=== PATIENT | male | born 1960 | race Caucasian/White ===

== ENCOUNTER 2024-03-16 23:56 | Emergency (ER) | payer MEDICARE, SELFPAY ==
--- NOTE | ~2024-03-16 | CT_ITS ---
EXAMINATION: CTA chest abdomen pelvis DATE: 03/17/2024 6:40 IUSS MASTER ANALYST INDICATION: Evaluate for dissection. TECHNIQUE: Computed tomographic angiography (CTA) of the chest, abdomen, and pelvis was performed wit hout and with 100 mL Omnipaque-350 intravenous contrast. The dose-length product was 2003.78 mGy-cm. Maximum intensity projection 3D-reconstructions of the aorta and other arteries were constructed by araceli alcazar technologist on a separate workstation. COMPARISON: None. FINDINGS: CHEST CTA: Heart size normal. No significant pleural or pericardial effusion. There is mediastinal lipomatosis. No thoracic lymphadenopathy. No evidence for aortic aneurysm or dissection. Dependent atelectasis. No focal airspace consolidation. No endobronchial lesions. No large central pulmonary embolism. ABDOMEN AND PELVIS CTA: No evidence for aortic aneurysm or dissection. There is a fat-containing left inguinal hernia. Nonobs tructing right nephrolithiasis. The liver, spleen, pancreas, adrenal glands and left kidney are unrem arkable. No evidence for dissection or aneurysm. IMPRESSION: 1. No acute abnormality of the chest abdomen or pelvis. 2: Nonobstructing right nephrolithiasis. Reviewed, dictated and finalized at location A. MASTER ANALYST
--- NOTE | ~2024-03-16 | XR_ITS ---
EXAMINATION: XR chest 1V 03/17/2024 00:24 INDICATION: Slurred speech PROCEDURE: AP view of the chest COMPARISON: No prior studies for comparison. FINDINGS: The lungs are clear. The cardiomediastinal silhouette is within normal limits. There are no pleural effusions. There is no pneumothorax suspected. IMPRESSION: 1: NO ACUTE CARDIOPULMONARY DISEASE. Reviewed, dictated and finalized at location A. GER AUDIO
--- NOTE | ~2024-03-16 | CT_ITS ---
EXAMINATION: CT brain wo con DATE: 03/17/2024 00:16 INDICATION: Speech deficit. TIA. TECHNIQUE: Computed tomography (CT) of the head was performed without intravenous contrast. The dose- length product was 681.00 mGy-cm. Automated exposure control and iterative reconstruction technique w ere employed. COMPARISON: None FINDINGS: Mild generalized atrophy. There are scattered mild periventricular and subcortical white ma tter changes, most likely related to small vessel ischemic disease (microangiopathy). Chronic bilater al lacunar infarctions of the caudate nucleus. There is intracranial atherosclerosis. No midline shif t. No ventriculomegaly. No acute infarction, hemorrhage or mass. Basilar cisterns are patent. IMPRESSION: 1. No acute intracranial abnormality. 2: Chronic bilateral lacunar infarctions. Chronic age-related findings. Reviewed, dictated and finalized at location A. ESTATE PHOTOGRAPHER
--- NOTE | ~2024-03-16 | CT_ITS ---
EXAMINATION: CTA brain carotid DATE: 03/17/2024 7:42 CLINIC LICENSED PRACTICAL NURSE INDICATION: Speech deficit. TIA. TECHNIQUE: Computed tomographic angiography (CTA) of the head was performed with 100 mL Omnipaque-350 intravenous contrast. CTA of the neck was performed with intravenous contrast. The dose-length produ ct was 1221.46 mGy-cm. Maximum intensity projection and volume rendered 3D-reconstructions were creat ed by the technologist on a separate workstation. Automated exposure control and iterative reconstruc tion technique were employed. COMPARISON: CT head dated 03/17/2024. FINDINGS: HEAD/neck CTA: There is mild atherosclerosis of the carotid arteries at the bifurcations with less th an 50% stenosis. There is extensive atherosclerosis of the intracranial carotid arteries as well as t he vertebral arteries. There is severe stenosis of the left vertebral artery with probable dissection versus thromboembolic occlusion from C2 to the basilar confluence. There is multifocal moderate high -grade stenosis of the basilar artery. Cannot exclude propagation of vertebral artery dissection. Ezekiel ateral P1 and P2 multifocal high-grade segmental stenosis and/or occlusions. No large vessel occlusio n. Incidental note is made of chronic bilateral lacunar infarctions. 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 Recommend vascular surgery consultation. Multifocal moderate h igh-grade stenosis of the basilar artery. Cannot exclude propagation of vertebral artery dissection. 2: Bilateral P1 and P2 multifocal high-grade segmental stenosis and/or occlusions. No large vessel o cclusion. Reviewed, dictated and finalized at location A. 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 Recommend vascular surgery consultation. Multifocal moderate high-grade stenosis of the basilar a rtery. Cannot exclude propagation of vertebral artery dissection. 2: Bilateral P1 and P2 multifocal high-grade segmental stenosis and/or occlusi ons. No large vessel occlusion.
[2024-03-17] VITALS (9 sets, daily range): BP systolic 90–182; BP diastolic 67–112; PULSE 63–92; RESP 16–20; TEMP 36.2; O2SAT 95–98
[2024-03-17 00:05] LABS: Glucose Point of Care 275 mg/dl (65-105)
--- NOTE | 2024-03-17 00:08 | PC.NURSE ---
pt taken straight to ct via wheelchair.
[2024-03-17 00:24] LABS: Basophils Percent Auto 0.3 % (0.2-1.2); Eosinophils Absolute Auto 0.1 K/mm3 (0-0.3); Eosinophils Percent Auto 1.2 % (0-4.4); Hematocrit 46.8 % (42.0-52.0); Hemoglobin 16.4 g/dL (14.0-18.0); Immature Granulocyte Absolute 0.02 K/mm3 (0.00-0.031); Immature Granulocyte Percent A 0.3 % (0-0.5); Lymphocytes Absolute Auto 1.42 K/mm3 (0.9-3.2); Lymphocytes Percent Auto 20.9 % (18.3-44.2); Mean Corpuscular Hemoglobin 30.5 pg (26-34); Mean Platelet Volume 8.7 fl (7.4-10.4); Monocytes Absolute Auto 0.5 K/mm3 (0.1-0.6); Monocytes Percent Auto 7.5 % (2.6-8.5); Neutrophils Absolute Auto 4.7 K/mm3 (1.3-6.7); Neutrophils Percent Auto 69.8 % (45.5-73.1); Platelet Count Result 234 k/mm3 (150-375); Red Blood Count 5.38 M/mm3 (4.6-6.20); White Blood Count 6.8 K/mm3 (4.5-10.0)
--- NOTE | 2024-03-17 00:32 | ECG_ITS ---
Test Date: 2024-03-17 00:32:19 Measurements Intervals [place] Rate: 89 P: 14 GA: 158 QRS: 4 QRSD: 114 T: -36 QT: 367 QTc: 447 Interpretive Statements SINUS RHYTHM INFERIOR MYOCARDIAL INFARCTION , OF INDETERMINATE AGE [40+ ms Q WAVE AND/OR ST/T ABNORMALITY IN II/aVF] No previous ECG available for comparison Electronically Signed On 03-17-2024 15:56:23 POTATO LOADER by Antonino Scott M.D.
[2024-03-17 00:36] LABS: Alanine Aminotransferase 33 U/L (6-50); Albumin Level 4.2 g/dL (3.5-5.1); Alkaline Phosphatase 96 U/L (38-126); Anion Gap 13 mmol/L (4-12); Aspartate Amino Transferase 30 U/L (17-59); Bilirubin,Total 0.8 mg/dL (0.2-1.3); Blood Urea Nitrogen 13 mg/dL (9-20); Carbon Dioxide 23 mmol/L (22-30); Chloride 101 mmol/L (98-107); Estimated CRCL calculation 131 ml/min; Estimated Glomerular Filt Rate > 60; Glucose 265 mg/dL (65-110); Potassium 3.7 mmol/L (3.4-5.0); Sodium 137 mmol/L (137-145)
[2024-03-17 00:40] LABS: Partial Thromboplastin Time 27.4 Seconds (22.3-36.8)
[2024-03-17 00:48] LABS: Troponin I < 0.012 ng/mL (0.000-0.034)
--- NOTE | 2024-03-17 03:01 | ED.NEUROSD ---
HPI - Neuro Symptoms/Deficit General Chief Complaint: Neuro Symptoms/Deficit Stated Complaint: slurred speech [id number] Time Seen by Provider: 03/17/24 02:32 History of Present Illness HPI Narrative: 63-year-old male with a past medical history including prior stroke with minor residual right-sided deficits. Today presents to the emergency department for evaluation of slurred speech this started at 2:00 p.m., started getting better with time at about 8:00 p.m but then he started developing right-sided weakness that was worsening his baseline associated with recurrence of his slurred speech and some diplopia. He called an ambulance and arrived to the emergency department. He is currently outside the window for TNK for an acute stroke, stroke workup ordered in triage. Patient is complaining of right-sided weakness, malaise, diplopia, headache. Denies any traumatic injuries, falls. He has been taking his medications which include antihypertensives, aspirin. He was otherwise in his normal state of health. He tells me he has a history of a potential aneurysm in his brain as well. Denies any chest discomfort, abdominal pain, back pain, nausea, vomiting, diarrhea, constipation. States his last stroke was over 4 years prior. Related Data Allergies Allergy/AdvReac Type Severity Reaction Status Date / Time No Known Allergies Allergy Verified 03/17/24 03:25 Review of Systems Review of Systems: As reviewed above in HPI Exam Narrative: GENERAL: Ill-appearing, not in any acute distress, awake and answering questions HEAD: [Normocephalic, atraumatic.] EYES: Bilateral mild ptosis, pupils are 3 mm and reactive. Extraocular movements are full. ENT: Nares clear, no rhinorrhea or epistaxis. Mucous membranes moist. NECK: Supple. CHEST: [Clear to auscultation. No respiratory distress.] HEART: [Regular rate and rhythm]. No murmur heard. [Normal peripheral pulses.] ABDOMEN: [Soft, nondistended], [nontender], [No rigidity or guarding] EXTREMITIES: Normal range of motion. [No edema.] SKIN: Warm, dry, no rash. NEURO: Right-sided deficits including some effort against gravity in the right arm, full strength in bilateral lower extremities, slurring to his speech. Total NIH stroke scale 3. Awake and answering questions, no visual field deficits. PSYCH: [Normal mood and affect.] Course Vital Signs Vital signs: Vital Signs Temperature 36.2 C L 03/17/24 00:10 Pulse Rate 89 03/17/24 00:10 Respiratory Rate 20 03/17/24 00:10 Blood Pressure 182/112 H 03/17/24 00:10 Pulse Oximetry 98 03/17/24 00:10 Temperature 36.2 C L 03/17/24 00:10 Pulse Rate 78 03/17/24 05:30 Respiratory Rate 16 03/17/24 05:30 Blood Pressure 164/98 H 03/17/24 05:30 Pulse Oximetry 98 03/17/24 05:30 Oxygen Delivery Room Air 03/17/24 03:23 MDM - Neuro Symptoms/Deficit MDM Narrative Medical decision making narrative: 63-year-old male with a history of previous stroke with minor residual right-sided deficits presenting to the emergency department with concerns of new stroke-like symptoms that began at approximately 2:00 p.m. which was is last known well. No falls or traumatic injuries. No recent stroke or neuro surgical procedure. Does not take any blood thinners aside from aspirin. He has hypertensive with a blood pressure in the 180s, no tachycardia, fever or hypoxia. He is ill-appearing and does have new right-sided worsening deficits and deployed planned speech deficits giving him an NIH stroke scale of 3 with a last known well of 2:00 p.m.. Outside the window for thrombolytics therapy but possibly still in the window for intervention if there is a large vessel occlusion. CT of the noncontrast head was ordered in triage and negative for an acute stroke. CT angiography of his head neck was ordered in addition to laboratory studies. Prior to obtaining a CTA imaging patient began becoming severely diaphoretic, weak, his blood pressure began dropping into the low 100s, no associated tachycardia. He states he was having worsening symptoms and he did exhibit some worsening right-sided extremity symptoms and weakness with decreased mentation and slowness to respond. He is still protecting his airway and able to answer questions. CTA imaging of his entire chest abdomen pelvis was also added on given the hemodynamic lability at this time. He was provided fluid bolus. Noncontrast CT shows no acute hemorrhage or intracranial process. Chest x-ray without any acute findings. CT angiography of his chest abdomen pelvis with no dissection or aneurysms in the chest or abdomen/pelvis and no evidence of pulmonary embolism. The CT angiography of his head neck is very concerning with a left vertebral artery dissection versus distal thromboembolic occlusion from the C2 level up to the V4 level. There is basilar artery multifocal moderate stenosis and possible occlusion which potentially is propagation of the vertebral artery dissection. High-grade multifocal stenosis in P1 and P2 segments and potential occlusion there. Recommendations for vascular surgery an MRI per radiology's read. Patient was re-evaluated and still having his persistent right-sided deficits but his blood pressure and diaphoresis have improved. He was mentating more appropriately but still having NIH stroke scale of 3-4 at this time. Last known well to p.m.. I called and spoke to the [facility] transfer system and was made aware that there is significant delays and inability to get a bed into their system given the full capacity of their neurological services. He was placed on the waitlist there. Recommendations from the neurological/Stroke attending Dr. Ford was to keep BP <220/110 while pending transfer. I went to explore other options including the [facility] transfer center for more expedient transfer and availability of beds. I spoke to the [facility] transfer center and got recommendations from the neurosurgical consult service on-call with Dr. Leavitt to emergently transfer him to the ED at [facility] in [place] for evaluation and treatment of his acute stroke and acute vertebral artery dissection with distal occlusion. I spoke to the ED physician Dr. Diggs and relayed the recommendations and clinical exam, historical features and findings for the patient. He was accepted as a direct ED to ED transfer. There is a significant delay in ground transfer services at this time given the availability of local ambulance rig. Expedient transfer was warranted for intervention within stroke window so air evac flight crew was put on standby and willing to transfer him via helicopter. Patient was made aware of the plan and agreeable to transfer at this time. Medical Records Attestation: I reviewed the patient's medical records. Lab Data Attestation: I reviewed the patient's lab results. 03/17/24 00:07 03/17/24 00:07 Labs: Lab Results 03/17/24 03/17/24 Range/Units 00:02 00:07 WBC 6.8 (4.5-10.0) K/mm3 RBC 5.38 (4.6-6.20) M/mm3 Hgb 16.4 (14.0-18.0) g/dL Hct 46.8 (42.0-52.0) % MCV 87.0 (80-100) fl MCH 30.5 (26-34) pg MCHC 35.0 (32-36) g/dl RDW 13.0 (11.5-14.5) % Plt Count 234 (150-375) k/mm3 MPV 8.7 (7.4-10.4) fl Immature Gran % (Auto) 0.3 (0-0.5) % Neut % (Auto) 69.8 (45.5-73.1) % Lymph % (Auto) 20.9 (18.3-44.2) % Sutton % (Auto) 7.5 (2.6-8.5) % Eos % (Auto) 1.2 (0-4.4) % Baso % (Auto) 0.3 (0.2-1.2) % Lymph # (Auto) 1.42 (0.9-3.2) K/mm3 Sutton # (Auto) 0.5 (0.1-0.6) K/mm3 Eos # (Auto) 0.1 (0-0.3) K/mm3 Baso # (Auto) 0.0 (0.0-0.1) K/mm3 Abs Immat Gran (auto) 0.02 (0.00-0.031) K/mm3 Absolute Neuts (auto) 4.7 (1.3-6.7) K/mm3 Absolute Nucleated RBC 0.000 (0.0-0.012) K/mm3 Nucleated RBC % 0.0 (0.0-0.2) % PT 13.0 (11.1-14.7) Seconds INR 1.0 APTT 27.4 (22.3-36.8) Seconds Sodium 137 (137-145) mmol/L Potassium 3.7 (3.4-5.0) mmol/L Chloride 101 (98-107) mmol/L Carbon Dioxide 23 (22-30) mmol/L Anion Gap 13 H (4-12) mmol/L BUN 13 (9-20) mg/dL Creatinine 0.63 L (0.7-1.3) mg/dL Estim Creat Clear Calc 131 ml/min Estimated GFR > 60 (59 - ) Glucose 265 H (65-110) mg/dL POC Capillary Glucose 275 H (65-105) mg/dl Calcium 9.0 (8.4-10.2) mg/dL Total Bilirubin 0.8 (0.2-1.3) mg/dL AST 30 (17-59) U/L ALT 33 (6-50) U/L Alkaline Phosphatase 96 (38-126) U/L Troponin I < 0.012 (0.000-0.034) ng/mL Total Protein 8.0 (6.3-8.2) g/dL Albumin 4.2 (3.5-5.1) g/dL TSH (Reflex) 9.530 H (0.465-4.68) uIU/mL Free T4 0.88 (0.78-2.19) ng/dL Total T3 1.34 (0.97-1.69) NG/ML Imaging Data Attestation: I personally reviewed and interpreted this imaging study as follows: My impression: Impressions Chest/Abdomen/Pelvis CTA 03/17/24 06:40 IMPRESSION: 1. No acute abnormality of the chest abdomen or pelvis. 2: Nonobstructing right nephrolithiasis. Chest X-Ray 03/17/24 06:46 IMPRESSION: 1: NO ACUTE CARDIOPULMONARY DISEASE. Head CT 03/17/24 06:57 IMPRESSION: 1. No acute intracranial abnormality. 2: Chronic bilateral lacunar infarctions. Chronic age-related findings. 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, Acute stroke due to ischemia Patient Disposition: Acute Care Hospital Condition: Critical Patient Language: Malay Follow-up/Referrals: Alejandro,MD Toan [Primary Care Provider] - Time of Disposition: 05:30 Quality Stroke Date of last known normal: 03/16/24 Time of last known normal: 14:00 Stroke Scale Stroke Scale 1: Stroke scale date:: 03/17/24 Stroke scale time:: 03:01 1a Level of consciousness: alert-0 1b Level of consciousness questions: answers both correctly-0 1c Level of consciousness commands: obeys both correctly-0 2 Best gaze: normal-0 3 Visual: no visual loss-0 4 Facial palsy: normal-0 5a Motor: left arm: no drift-0 5b Motor: right arm: some effort/gravity-2 6a Motor: left leg: no drift-0 6b Motor: right leg: no drift-0 7 Limb ataxia: absent-0 8 Sensory: normal-0 9 Best language: no aphasia-0 10 Dysarthria: slurs some words-1 11 Extinction and inattention: no abnormality-0 Level:: 3
[2024-03-17] MEDS: LACTATED RINGERS 1,000 ML 999 ML IV CONT (03:26)
--- OUTSIDE RECORDS SUMMARY | 2024-03-17 04:03 | XMS_ITS | Referral Summary ---
Author Organization [facility] Address [address] [place] [address] Care Team Providers Care Wind Turbine Machinist Name Role Phone Toan Allen MD Primary Care Provider [phone] Source Comments [facility],non-owned Affiliates and Associated Physician Practices is amultiple site organization consisting of ambulatory clinics and hospital sitesin [place], [place]. This disclosure is being madepursuant to the Care Everywhere program and may not contain all information available regarding this patient. Last updated 17.[facility] Allergies Active Allergy Reactions Criticality Noted Date Comments Morphine Other Medium 10/30/2017 Sensation disturbance, etc. Medications * Be aware that medications may not be up to date on this document. Alwaysverify current medications with the patient. Medication Sig Dispensed Refills Start Date End Date Status levothyroxine (SYNTHROID) 75 MCG tablet Take 75 mcg by mouth daily before breakfast Active aspirin (ASPIRIN) 81 MG chew tablet Take 81 mg by mouth once daily Active fish oil/omega-3 fatty acids (PROMEGA;CARDI-OM EGA 3) 1000 MG capsule Take 1,000 mg by mouth 3 times daily with meals Active clopidogrel (PLAVIX) 75 MG tablet Take 1 tablet by mouth once daily 30 tablet 10/15/2017 Active metFORMIN (GLUCOPHAGE) 500 MG tablet Take 500 mg by mouth 2 times daily with morning and evening meal 06/28/2018 Active amLODIPine (NORVASC) 10 MG tablet Take 10 mg by mouth once daily Active glimepiride (AMARYL) 4 MG tablet Take 4 mg by mouth daily with breakfast Active icosapent ethyl (VASCEPA) 1 g capsule Take 1 g by mouth 2 times daily with morning and evening meal Active evolocumab (REPATHA) 140 MG/ML prefilled syringe Inject 140 mg subcutaneously every 14 days Active rosuvastatin (CRESTOR) 40 MG tablet Take 40 mg by mouth once daily Active lisinopril (PRINIVIL; ZESTRIL) 20 MG tablet Take 1 (one) tablet by mouth once daily 30 tablet 5 03/22/2020 Active lisinopril (PRINIVIL; ZESTRIL) 40 MG tablet Take 20 mg by mouth 2 times daily 07/30/2020 Active Active Problems Problem Noted Date Diagnosed Date Cerebrovascular accident (CVA) 03/17/2020 TIA (transient ischemic attack) 06/23/2018 Slurred speech 06/23/2018 Tachypnea 06/23/2018 Intracranial carotid stenosis 11/08/2017 Severe sepsis 10/11/2017 Vertebrobasilar artery insufficiency Cerebral aneurysm Benign essential HTN Hyperlipidemia Troponin level elevated Social History Tobacco Use Types Packs/Day Years Used Date Smoking Tobacco: Never Smokeless Tobacco: Never Tobacco Cessation:Counseling Given: Yes Alcohol Use Standard Drinks/Week Comments Yes 0 (1 standard drink = 0.6 oz pur e alcohol) socially AUDIT-C Answer Date Recorded Q1: How often do you have a drink containing alc ohol? Monthly or less 03/18/2020 Q2: How many drinks containi ng alcohol do you have on a typical day when you are drinking? 1 or 2 03/18/2020 Q3: How often do you have si x or more drinks on one occasion? Never 03/18/2020 Hunger Vital Sign Answer Date Recorded Within the past 12 months, y ou worried that your food would run out before you got the money to buy more. Never true 03/18/19 21 Within the past 12 months, t he food you bought just didn't last and you didn't have money to get more. Never true 03/18/2020 PRAPARE - Transportation Answer Date Re corded In the past 12 months, has l ack of transportation kept you from medical appointments or from getting medications? No 02/19 In the past 12 months, has l ack of transportation kept you from meetings, work, or from getting things needed for daily living? No 03/18/2020 Sex and Gender Information Value Date Recorded Sex Assigned at Not on file Gender Identity Not on file Sexual Orientation Not on file Last Filed Vital Signs Vital Sign Reading Time Taken Comments Blood Pressure 150/100 05/23/2020 10:32 AM CDT Pulse 88 05/23/2020 10:32 AM CDT Temperature 37 ??C (98.6 ??F) 03/21/2020 11:50 AM MULTI NEEDLE MACHINE OPERATOR Respiratory Rate 16 05/23/2020 10:32 AM CDT Oxygen Saturation 98% 05/23/2020 10:32 AM CDT Inhaled Oxygen Concentration - - Weight 108.9 kg (240 lb) 05/23/2020 10:32 AM CDT Height 182.9 cm (6') 05/23/2020 10:32 AM CDT Body Mass Index 32.55 05/23/2020 10:32 AM CDT Functional Status Functional Status Response Date of Assess ment Is person deaf or have serious hearing difficult y? No 03/18/2020 Is person blind or have serious difficulty seein g? No 03/18/2020 Does person have serious dif ficulty walking/climbing stairs? No 03/18/2020 Does person have difficulty dressing/bathing? No 03/18/2020 Does person have difficulty doing errands alone? No 03/18/2020 Cognitive Status Response Date of Assessm ent Does person have difficulty concentrating/remembering/making decisions? No 03/18/2020 Plan of Treatment Not on file Procedures Procedure Name Priority Date/Time Associated Diagnosis Comments BASIC METABOLIC PANEL (CALCIUM TOTAL) AM Draw 03/21/2020 4:43 AM MULTI NEEDLE MACHINE OPERATOR from Last 3 Months or Most Recently Relevant to Health Maintenance Results * (ABNORMAL) BASIC METABOLIC PANEL (CALCIUM TOTAL) (03/21/2020 4:43 AM MULTI NEEDLE MACHINE OPERATOR) Glucose 170(H) 70 - 105 mg/dL 03/21/2020 5:34 AM MULTI NEEDLE MACHINE OPERATOR [facility] Sodium 134(L) 136 - 145 mmol/L 03/21/2020 5:34 AM MULTI NEEDLE MACHINE OPERATOR [facility] Potassium 3.7 3.5 - 5.1 mmol/L 03/21/2020 5:34 AM MULTI NEEDLE MACHINE OPERATOR [facility] Chloride 101 98 - 107 mmol/L 03/21/2020 5:34 AM MULTI NEEDLE MACHINE OPERATOR [facility] CO2 24 23 - 31 mmol/L 03/21/2020 5:34 AM MULTI NEEDLE MACHINE OPERATOR [facility] Calcium 8.7 8.4 - 10.4 mg/dL 03/21/2020 5:34 AM MULTI NEEDLE MACHINE OPERATOR [facility] Anion Gap 9 8 - 18 mmol/L 03/21/2020 5:34 AM MULTI NEEDLE MACHINE OPERATOR [facility] Comment:Attention clinician: Reference Range change. BUN 12 8.4 - 25.7 mg/dL 03/21/2020 5:34 AM MULTI NEEDLE MACHINE OPERATOR [facility] Creatinine 0.75 0.72 - 1.25 mg/dL 03/21/2020 5:34 AM MULTI NEEDLE MACHINE OPERATOR [facility] eGFR by MDRD >60 >60 mL/min/1.7 3m2 03/21/2020 5:34 AM MULTI NEEDLE MACHINE OPERATOR [facility] eGFR by MDRD >60 >60 mL/min/1.7 3m2 03/21/2020 5:34 AM MULTI NEEDLE MACHINE OPERATOR [facility] Blood BLOOD SPECIMEN / Unknown Venipuncture / Unknown 03/21/2020 4:43 AM MULTI NEEDLE MACHINE OPERATOR 03/21/2020 4:55 AM MULTI NEEDLE MACHINE OPERATOR Liz Jonathan ELECTRIC MOTOR ASSEMBLER-ARTIFICIAL FLOWER MAKER LAB - CHEMISTRY ORDERABLES [facility] [id number] [id number] from Last 3 Months or Most Recently Relevant to Health Maintenance Advance Directives * Full Code (Latest Code Status on File) Date Activated Date Inactivated Comments 03/17/2020 6:42 PM 03/21/2020 4:37 PM * Full Code Date Activated Date Inactivated Comments 06/23/2018 6:50 AM 06/27/2018 3:37 PM * Full Code Date Activated Date Inactivated Comments 10/12/2017 12:08 PM 10/14/2017 4:55 PM * Full Code Date Activated Date Inactivated Comments 10/11/2017 3:46 AM 10/12/2017 12:08 PM Care Teams Wind Turbine Machinist Relationship Specialty Start Date End Date Toan Allen MD PCP - General Internal Medicine 10/10/17
--- OUTSIDE RECORDS SUMMARY | 2024-03-17 04:03 | XMS_ITS | Clinical Summary ---
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 Indications: high blood pressure Active ergocalciferol (VITAMIN D) 50,000 unit capsuleIndicatio ns:Vitamin D deficiency Take 1 capsule (50,000 Units total) by mouth once a week 4 capsule 2 2 Active acetone, urine, test stripIndications :Type 2 diabetes mellitus with hyperglycemia, with long-term current use of insulin (HCC) Use as direct when blood sugar > 250 mg/dl 50 strip 1 2 Active lancets 30 gauge miscIndications: Type 2 diabetes mellitus without complication, unspecified whether watermelon inspector insulin use (HCC) One Touch Delica Lancets - Use to test blood sugar 3 times per day. 200 each 2 Active OneTouch Verio test strips stripIndications :Type 2 diabetes mellitus without complication, unspecified whether watermelon inspector insulin use (HCC) Use to test blood sugar 3 times per day. 2 Active pen needle, diabetic 31 gauge x 3/16 needleIndication s:Type 2 diabetes mellitus without complication, unspecified whether watermelon inspector insulin use (HCC) Use to inject insulin 4 times per day. 2 Active flash glucose scanning reader (FreeStyle Diamond 2 Troy) misc Use as directed for continuous glucose monitoring. T2DM 1 each 2 Active flash glucose sensor (FreeStyle Diamond 2 Sensor) kit Use as directed for continuous glucose monitoring. T2DM 1 kit 11 2 Active insulin glargine (LANTUS) 100 unit/mL (3 mL) pen for injectionIndicat ions:Type 2 diabetes mellitus without complication, unspecified whether jail insulin use (HCC) Inject 48 units. Once per day. 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 Today with persistent binocular diplopia and newly noted right hypertropia. Stable abduction deficit OS and small adduction deficit as well. No fatigability, no Kevin's lid twitch. Recent TSH 10.15 and T4 0.84. HPI significant for recurrent episodes of diplopia, weakness, and dysarthria with exertion which have occurred sporadically since 2013 and are now worse. Given lack of improvement/ new vertical component at 8 weeks, this is less likely to be a microvascular CN6 palsy. My highest suspicion is for myasthenia gravis, given the history of exertional diplopia/weakness/dysarthria. Will check acetylcholine receptor binding Ab. Will also check thyroid stimulating immunoglobulin given hx hypothyroidism, although given fluctuating symptoms thyroid eye disease less likely. If positive will plan for chest CT and start mestinon. Continue patching for symptomatic relief Will schedule follow up pending test results. Aneurysm of basilar artery ([facility]) 09/17/2013 Hyperlipidemia Hypertension JAIME (obstructive sleep apnea) Diabetes mellitus, type 2 Immunizations Name Administration Dates Next Due Influenza, Quadrivalent, Muna l Culture-based MDCK, Preservative Free, Antibiotic Free, Intramuscular 01/16/2022 Influenza, Quadrivalent, Spl it, Intramuscular 11/18/2019 Influenza, Quadrivalent, Spl it, Preservative Free, Intramuscular 12/07/2018 Influenza, Trivalent, IM (MDV) 11/06/2016,2013 Influenza, Trivalent, Preser vative Free, Intramuscular 11/17/2012 Influenza, Unspecified 11/28/2017,12/07/2014 Pfizer SARS-CoV-2 Monovalent Vaccination (12+ Yrs) PURPLE 06/08/2020,05/17/2020,05/15/2020 Surgical History Surgery Date Site/Laterality Comments INGUINAL HERNIA REPAIR FOREARM SURGERY Repair Of Forearm - (Added by TW Conv) TIBIA FRACTURE SURGERY 02/17/2009 - 02/16/2010 Left TONSILLECTOMY Medical History Medical History Date Comments Hyperlipidemia Hypertension JAIME (obstructive sleep apnea) Diabetes mellitus, type 2 (HCC) Aneurysm of basilar artery (CMS/HCC) (HCC) 2014 Tibial plateau fracture 2010 Family History Medical History Relation Name Comments Hypertension Father Coronary artery disease Maternal Grandfather Hypertension Mother Coronary artery disease Paternal Grandfather Relation Name Status Comments Father Maternal Grandfather Mother Paternal Grandfather Social History Tobacco Use Types Packs/Day Years Used Date Smoking Tobacco: Never Smokeless Tobacco: Never AUDIT-C Answer Date Recorded Q1: How often do you have a drink containing alc ohol? Never 06/04/2021 Average Number of Drinks Not on file 022 Frequency of Binge Drinking Not on file 05/18 PHQ-2 Answer Date Recorded PHQ-2 Total Score 0 06/14/2021 Sex and Gender Information Value Date Recorded Sex Assigned at Not on file Legal Sex Male 2:58 AM [employer] Gender Identity Not on file Sexual Orientation Not on file Obstetrics History Last Filed Vital Signs Vital Sign Reading Time Taken Comments Blood Pressure 143/89 01/16/2022 12:58 PM [employer] Pulse 90 01/16/2022 12:58 PM [employer] Temperature 36.6 ??C (97.8 ??F) 01/16/2022 12:[address] Respiratory Rate 17 08/28/2021 12:50 PM CDT Oxygen Saturation 96% 08/28/2021 12:50 PM CDT Inhaled Oxygen Concentration - - Weight 113.4 kg (250 lb) 01/16/2022 12:58 PM [employer] Height 182.9 cm (6') 01/16/2022 12:58 PM [employer] Body Mass Index 33.91 01/16/2022 12:58 PM [employer] Plan of Treatment Health Maintenance Due Date Last Done Comments Colon Cancer Screening-Colonoscopy 1960 Hepatitis C Screening 1960 Prostate Cancer Screening-PSA 1960 Foot Exam 1960 Pneumococcal vaccine <65 (1 of 2 - PCV) 1966 DTaP/Tdap/Td Vaccine (1 - Tdap) 05/08/1971 Hepatitis B Screening 1978 Regular Well Visit/Exam 18-64 1978 Zoster Vaccine (1 of 2) 2010 Dilated Eye Exam 11/28/2021 11/28/2020 Depression Screening 06/13/2022 06/13/2021, 09/29/2020, 09/29/2020 eGFR 07/03/2022 07/03/2021, 06/17, 06/22/2021, Additional history exists Hemoglobin A1C 07/16/2022 01/16/2022, 05/19, 09/30/2020, Additional history exists Albumin Creatinine Ratio, Urine 09/07/2022 Lipid Panel 09/07/2022 09/07/2021, 05/19, 09/30/2020, Additional history exists Covid-19 Vaccine (2023- 5 season) 2023 06/08/2020, 05/17/2020, 05/15/2020 Influenza Vaccine (#1) 2023 2, 11/18/2019, 12/07/2018, Additional history exists Procedures Procedure Name Priority Date/Time Associated Diagnosis Comments POCT HEMOGLOBIN A1C Routine 01/16/2022 1:36 PM [employer] Type 2 diabetes mellitus without complication, unspecified whether watermelon inspector insulin use (HCC) LIPID PANEL Routine 09/07/2021 2:18 PM CDT Moderate mixed hyperlipidemia not requiring statin therapy ALBUMIN CREATININE RATIO, URINE Routine 09/07/2021 2:18 PM CDT Type 2 diabetes mellitus without complication, unspecified whether jail insulin use (HCC) EGFR Routine Gen Lab 07/03/2021 7:55 AM CDT from Last 3 Months or Most Recently Relevant to Health Maintenance Results * (ABNORMAL) POCT hemoglobin A1c (01/16/2022 1:36 PM [employer]) Hemoglobin A1C, POC 7.2 Blood 01/16/2022 1:36 PM [employer] Ling Garcia MD PhD POINT OF CARE TEST ORDERABLES Final Result * (ABNORMAL) Albumin Creatinine Ratio, Urine (09/07/2021 2:18 PM CDT) Microalb, Ur 87.8(H) 0.0 - 22.9 mg/L [facility] Random Urine Creatinine 241.9 mg/dL [facility] Microalb/Creat Ratio 36.3(H) 0.0 - 29.9 mg/g [facility] Urine 09/07/2021 2:18 PM CDT 09/07/2021 3:25 PM CDT us Talat Gupta MD LAB URINE ORDERABLES Final R esult [facility] * (ABNORMAL) Lipid panel (09/07/2021 2:18 PM CDT) Triglycerides 174(H) <150 mg/dL [facility] Comment: Desirable: <150 mg/dL, fasting <175 mg/dL, non-fasting Persistently elevated triglycerides may enhance atherosclerotic cardiovascular disease. Total Cholesterol 142 <200 mg/dL [facility] Total HDL-C Direct 37(L) >40 mg/dL [facility] Comment: A low HDL-C may be inidcative of metabolic syndrome and enhance atherosclerotic cardiovascular disease risk. Non-HDL cholesterol 105 100 - 219 mg/dL [facility] Friedewald LDL Chol 70 70 - 189 mg/dL [facility] Comment: The Friedewald equation is accurate in most patients when triglycerides are less than 150 mg/dL. ??Consider the use of non-HDL-C or Apo B to help estimate atherosclerotic cardiovascular diesase risk if triglycerides are elevated. Blood specimen (specimen) 09/07/2021 2:18 PM CDT 09/07/2021 3:25 PM CDT Narrative [facility] - 09/07/2021 4:24 PM CDT Current interpretive data was last updated January 19, 2021. For adults ages 40-79, the ACC/AHA recommends discussing your 10-year atherosclerotic cardiovascular disease risk with your health care provider. ??https://www.acc.org/ASCVDApp These lab test should be done fasting. This means do not eat or drink for at least 12 hours prior to getting your blood drawn. us Talat Gupta MD LAB BLOOD ORDERABLES Final R esult Performing Organization Address [facility]/ZIP Co de Phone Number [facility] * eGFR (07/03/2021 7:55 AM CDT) eGFR >90 90 - 130 mL/min/1. 73 m2 [facility] Comment: Interpretive Data Reference Interval Normal ?>/= 90 mL/min/1.73m2 Mildly decreased* ? 60 - 89 mL/min/1.73m2 Mildly to moderately decreased ?45 - 59 mL/min/1.73m2 Moderately to severely decreased ??30 - 44 mL/min/1.73m2 Severely decreased ?15 - 29 mL/min/1.73m2 Kidney Failure ?< 15 ??mL/min/1.73m2 *Relative to young adult level Estimated glomerular filtration rate is determined by the 2020 CKD-EPI equation recommended by the National Kidney Foundation (A Unifying Approach to GFR Estimation: Recommendations of the NKF-ASK Task Force on Reassessing the Inclusion of Race in Diagnosing Kidney Disease, JASN 2020). The CKD-EPI equation should not be used for patients with unstable renal function and has not been validated in children and those over 70. Current interpretive data was last reviewed 2020. Blood 07/03/2021 7:55 AM CDT 07/03/2021 11:02 AM CDT us Notinfile Unknown LAB BLOOD ORDERABLES Final Res ult Performing Organization Address [facility]/ZIP Co de Phone Number [facility] [place] [address] from Last 3 Months or Most Recently Relevant to Health Maintenance [place] [address] [place] [address] [facility] Advance Directives For more information, please contact: [phone] * Full Code (Latest Code Status on File) Date Activated Date Inactivated Comments 06/14/2021 2:18 AM 06/20/2021 6:13 PM * Full Code Date Activated Date Inactivated Comments 09/30/2020 12:32 AM 10/01/2020 7:02 PM Care Teams Field Reimbursement Manager Relationship Specialty Start Date End Date Toan Allen MD PCP - General 09/29/20
--- OUTSIDE RECORDS SUMMARY | 2024-03-17 04:03 | XMS_ITS | Clinical Summary ---
Author Organization [facility] Address [address] [place] [address] Care Team Providers Care Milk Runner Name Role Phone Toan Allen MD Primary Care Provider [phone] Source Comments [facility],non-owned Affiliates and Associated Physician Practices is amultiple site organization consisting of ambulatory clinics and hospital sitesin [place], [place], [place]. This disclosure is being madepursuant to the Care Everywhere program and may not contain all information available regarding this patient. 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 Respiratory Rate 16 05/23/2020 10:32 AM CDT Oxygen Saturation 98% 05/23/2020 10:32 AM CDT Inhaled Oxygen Concentration - - Weight 108.9 kg (240 lb) 05/23/2020 10:32 AM CDT Height 182.9 cm (6') 05/23/2020 10:32 AM CDT Body Mass Index 32.55 05/23/2020 10:32 AM CDT Plan of Treatment Health Maintenance Due Date Last Done Comments COLOGUARD (AGES 45-75) - COLON CA SCREENING 1960 COLON MONITORING 1960 COLONOSCOPY - COLON CA SCREENING 1960 CT COLONOGRAPHY - COLON CA SCREENING 1960 Colorectal Cancer Screening 1960 FIT - COLON CA SCREENING 1960 FLEX SIG - COLON CA SCREENING 1960 HIV SCREENING 05/08/1975 HEPATITIS C SCREENING 05/03/1978 DTAP/TDAP/TD VACCINES (1 - Tdap) 05/08/1979 PNEUMOCOCCAL VACCINE 50+ (1 of 1 - PCV) 2010 ZOSTER VACCINE (1 of 2) 2010 SCREENING FOR DIABETES 03/21/2023 , 03/21/2020, 03/21/2020, Additional history exists COVID-19 VACCINE ( season) 2023 06/08/2020, 05/17/2020 INFLUENZA VACCINE (#1) 2023 , 12/07/2018, 11/28/2017, Additional history exists DEPRESSION SCREENING 02/18/2024 Respiratory Syncytial Virus (RSV) Vaccine Pt: or over 60 yrs (1 - 1-dose 75+ series) 05/08/2035 HEPATITIS B VACCINE Aged Out No longe r eligible based on patient's age to complete this topic HIB VACCINE Aged Out No longer eligi ble based on patient's age to complete this topic HPV VACCINE Aged Out No longer eligi ble based on patient's age to complete this topic MENINGOCOCCAL (Group B) VACCINE Aged Out No longer eligible based on patient's age to complete this topic MENINGOCOCCAL VACCINE Aged Out No arnie juan luis eligible based on patient's age to complete this topic PNEUMOCOCCAL VACCINE Aged Out No long er eligible based on patient's age to complete this topic Procedures Procedure Name Priority Date/Time Associated Diagnosis Comments BASIC METABOLIC PANEL (CALCIUM TOTAL) AM Draw 03/21/2020 4:43 AM UPSET OPERATOR from Last 3 Months or Most Recently Relevant to Health Maintenance Results * (ABNORMAL) BASIC METABOLIC PANEL (CALCIUM TOTAL) (03/21/2020 4:43 AM UPSET OPERATOR) Glucose 170(H) 70 - 105 mg/dL 03/21/2020 5:34 AM UPSET OPERATOR [facility] Sodium 134(L) 136 - 145 mmol/L 03/21/2020 5:34 AM UPSET OPERATOR [facility] Potassium 3.7 3.5 - 5.1 mmol/L 03/21/2020 5:34 AM [facility] Chloride 101 98 - 107 mmol/L 03/21/2020 5:34 AM UPSET OPERATOR [facility] CO2 24 23 - 31 mmol/L 03/21/2020 5:34 AM UPSET OPERATOR [facility] Calcium 8.7 8.4 - 10.4 mg/dL 03/21/2020 5:34 AM UPSET OPERATOR [facility] Anion Gap 9 8 - 18 mmol/L 03/21/2020 5:34 AM UPSET OPERATOR [facility] Comment:Attention clinician: Reference Range change. BUN 12 8.4 - 25.7 mg/dL 03/21/2020 5:34 AM UPSET OPERATOR [facility] Creatinine 0.75 0.72 - 1.25 mg/dL 03/21/2020 5:34 AM UPSET OPERATOR [facility] eGFR by MDRD >60 >60 mL/min/1.7 3m2 03/21/2020 5:34 AM UPSET OPERATOR [facility] eGFR by MDRD >60 >60 mL/min/1.7 3m2 03/21/2020 5:34 AM UPSET OPERATOR [facility] Blood BLOOD SPECIMEN / Unknown Venipuncture / Unknown 03/21/2020 4:43 AM UPSET OPERATOR 03/21/2020 4:55 AM UPSET OPERATOR Liz Castillo [employer] [place] [facility] - CHEMISTRY ORDERABLES [facility] [address] [place] [address] from Last 3 Months or Most Recently [...] 3:46 AM 10/12/2017 12:08 PM Care Teams Milk Runner Relationship Specialty Start Date End Date Toan Allen MD PCP - General Internal Medicine 10/10/17
--- OUTSIDE RECORDS SUMMARY | 2024-03-17 04:03 | XMS_ITS | Encounter Summary ---
Author Organization [facility] Address [address] [facility] [address] [place] [address] Phone Care Team Providers Care Transcriptionist Name Role Phone Toan Allen MD Primary Care Provider [phone] Encounter Details Date Type Department Care Team (Late st Contact Info) Description 09/30/2020 Ophth Exam [facility] Ophthalmology [address] [place] [address] 1[address] [place] [address] Vik Moses MD [address] [facility] [address] [place] [address] Social History Tobacco Use Types Packs/Day Years Used Date Smoking Tobacco: Never PHQ-2 Answer Date Recorded PHQ-2 Total Score 0 09/30/2020 Sex and Gender Information Value Date Recorded Sex Assigned at Not on file Legal Sex Male 2:58 AM [employer] Gender Identity Not on file Sexual Orientation Not on file documented as of this encounter Plan of Treatment Not on file documented as of this encounter Visit Diagnoses Not on filedocumented in this encounter Eye Exam Visual Acuity Right eye Left eye Near sc 20/20 20/20 Tonometry (Tonopen, 7:52 PM) Right eye Left eye Pressure 21 20 Pupils Dark Light Shape React APD Right eye 4 2 Round Brisk None Left eye 4 2 Round Brisk None Visual Stevenson Right eye Left eye Full Full Extraocular Movement Right eye Left eye Ortho, Nystagmus Ortho, Nystagmu s Up gaze -0.5 -- -- -- -- -2 Right/left gaze -0.5 -- -- -- -- -4 Down gaze -- -- -- -- -- -2 nystagums od on adductiion Neuro/Psych Mood/Affect: Normal External Exam Right eye Left eye External Normal Normal cranial nerve (CN) V1 intact Slit Lamp Exam Right eye Left eye Lids/Lashes Normal Normal Conjunctiva/Sclera White and quiet White and doreen et Cornea Clear Clear Anterior Chamber Deep and quiet Deep and quiet Iris Round and reactive Round and yang ctive Lens NSC NSC Vitreous Normal Normal Fundus Exam Right eye Left eye Disc Normal Normal C/D Ratio 0.2 0.2 Macula Normal Normal Vessels Normal Normal Periphery Normal Normal Care Teams Transcriptionist Relationship Specialty Start Date End Date Toan Allen MD PCP - General 09/29/20 documented as of this encounter
--- OUTSIDE RECORDS SUMMARY | 2024-03-17 04:03 | XMS_ITS | Patient Health Summary ---
Author Organization [facility] Address [address] [facility] [place] [address] Care Team Providers Care Coordinate Measuring Equipment Operator Name Role Phone Toan Allen MD Primary Care Provider [phone] Note from [facility],non-owned Affiliates and Associated Physician Practices is amultiple site organization consisting of ambulatory clinics and hospital sitesin [place], [place]. This disclosure is being madepursuant to the Care Everywhere program and may not contain all information available regarding this patient. Last updated 17.[facility] Allergies * Morphine(Other) -Medium Criticality Medications * Be aware that medications may not be up to date on this document. Alwaysverify current medications with the patient. * levothyroxine (SYNTHROID) 75 MCG tablet Take 75 mcg by mouth daily before breakfast * aspirin (ASPIRIN) 81 MG chew tablet Take 81 mg by mouth once daily * fish oil/omega-3 fatty acids (PROMEGA;CARDI-OMEGA 3) 1000 MG capsule Take 1,000 mg by mouth 3 times daily with meals * clopidogrel (PLAVIX) 75 MG tablet(Started 10/15/2017) Take 1 tablet by mouth once daily * metFORMIN (GLUCOPHAGE) 500 MG tablet(Started 06/28/2018) Take 500 mg by mouth 2 times daily with morning and evening meal * amLODIPine (NORVASC) 10 MG tablet Take 10 mg by mouth once daily * glimepiride (AMARYL) 4 MG tablet Take 4 mg by mouth daily with breakfast * icosapent ethyl (VASCEPA) 1 g capsule Take 1 g by mouth 2 times daily with morning and evening meal * evolocumab (REPATHA) 140 MG/ML prefilled syringe Inject 140 mg subcutaneously every 14 days * rosuvastatin (CRESTOR) 40 MG tablet Take 40 mg by mouth once daily * lisinopril (PRINIVIL; ZESTRIL) 20 MG tablet(Started 03/22/2020) Take 1 (one) tablet by mouth once daily 5 refills by 03/21/2021 * lisinopril (PRINIVIL; ZESTRIL) 40 MG tablet(Started 07/30/2020) Take 20 mg by mouth 2 times daily Active Problems Problem Noted Date Diagnosed Date [...] 37 ??C (98.6 ??F) 03/21/2020 11:50 AM 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 Respiratory Rate 16 05/23/2020 10:32 AM CDT Oxygen Saturation 98% 05/23/2020 10:32 AM CDT Inhaled Oxygen Concentration - - Weight 108.9 kg (240 lb) 05/23/2020 10:32 AM CDT Height 182.9 cm (6') 05/23/2020 10:32 AM CDT Body Mass Index 32.55 05/23/2020 10:32 AM CDT Procedures * XR SHOULDER LEFT 2VW OR MORE(Performed 09/27/2020) Performed for Chronic left shoulder pain * XR SHOULDER LEFT 2VW OR MORE(Performed 08/14/2020) Performed for Chronic left shoulder pain * MRI BRAIN WWO CONTRAST(Performed 07/31/2020) Performed for 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) * CREATININE - POCT INTERFACED(Performed 07/31/2020) * CARDIAC EKG ORDER(Performed 03/23/2020) * CARDIAC RHYTHM STRIP ORDER(Performed 03/23/2020) * GLUCOSE - POINT OF CARE(Performed 03/21/2020) * GLUCOSE - POINT OF CARE(Performed 03/21/2020) * BASIC METABOLIC PANEL (CALCIUM TOTAL)(Performed 03/21/2020) * GLUCOSE - POINT OF CARE(Performed 03/20/2020) * GLUCOSE - POINT OF CARE(Performed 03/20/2020) * GLUCOSE - POINT OF CARE(Performed 03/20/2020) * GLUCOSE - POINT OF CARE(Performed 03/20/2020) * CT CHEST ABDOMEN PELVIS W CONT(Performed 03/20/2020) Performed for Brain mass * CT HEAD WO CONTRAST(Performed 03/20/2020) Performed for Cerebrovascular accident (CVA), unspecified mechanism (HCC) * GLUCOSE - POINT OF CARE(Performed 03/20/2020) * PSA FREE + TOTAL PANEL(Performed 03/20/2020) * BASIC METABOLIC PANEL (CALCIUM TOTAL)(Performed 03/20/2020) * GLUCOSE - POINT OF CARE(Performed 03/19/2020) * GLUCOSE - POINT OF CARE(Performed 03/19/2020) * GLUCOSE - POINT OF CARE(Performed 03/19/2020) * CT SHOULDER LEFT WO CONTRAST(Performed 03/19/2020) Performed for Closed 3-part fracture of proximal end of left humerus, initial encounter * GLUCOSE - POINT OF CARE(Performed 03/19/2020) * MRI BRAIN WWO CONTRAST(Performed 03/19/2020) Performed for Cerebrovascular accident (CVA), unspecified mechanism (HCC) * GLUCOSE - POINT OF CARE(Performed 03/19/2020) * BASIC METABOLIC PANEL (CALCIUM TOTAL)(Performed 03/19/2020) * CBC W/O DIFFERENTIAL(Performed 03/19/2020) * GLUCOSE - POINT OF CARE(Performed 03/18/2020) * GLUCOSE - POINT OF CARE(Performed 03/18/2020) * GLUCOSE - POINT OF CARE(Performed 03/18/2020) * XR SHOULDER LEFT 2VW OR MORE(Performed 03/18/2020) Performed for Closed 3-part fracture of proximal end of left humerus, initial encounter * GLUCOSE - POINT OF CARE(Performed 03/18/2020) * GLUCOSE - POINT OF CARE(Performed 03/18/2020) * GLUCOSE - POINT OF CARE(Performed 03/18/2020) * HEMOGLOBIN A1C(Performed 03/18/2020) * LIPID PROFILE(Performed 03/18/2020) * TROPONIN I(Performed 03/18/2020) * TROPONIN I(Performed 03/17/2020) * URINE MICROSCOPIC ONLY REFLEX TO CULTURE(Performed 03/17/2020) * URINALYSIS REFLEX MICROSCOPIC REFLEX CULTURE(Performed 03/17/2020) * GLUCOSE - POINT OF CARE(Performed 03/17/2020) * CT ANGIO BRAIN NECK STROKE(Performed 03/17/2020) Performed for Cerebrovascular accident (CVA), unspecified mechanism (HCC) * ECHOCARDIOGRAM 2D WITH DOPPLER(Performed 03/17/2020) Performed for Cerebrovascular accident (CVA), unspecified mechanism (HCC) * CARDIAC EKG ORDER(Performed 09/30/2018) * IR CAROTID CEREBRAL ANGIOGRAM(Performed 08/12/2018) Performed for Vertebrobasilar artery stenosis * OXYGEN(Performed 08/12/2018) * PT-INR SLH(Performed 08/12/2018) Performed for Vertebrobasilar artery stenosis * BASIC METABOLIC PANEL (CALCIUM TOTAL)(Performed 08/12/2018) Performed for Vertebrobasilar artery stenosis * CBC W/O DIFFERENTIAL(Performed 08/12/2018) Performed for Vertebrobasilar artery stenosis * GLUCOSE - POINT OF CARE(Performed 06/27/2018) * GLUCOSE - POINT OF CARE(Performed 06/27/2018) * PROCALCITONIN LEVEL(Performed 06/27/2018) * PHOSPHORUS BLOOD(Performed 06/27/2018) Performed for Slurred speech * MAGNESIUM BLOOD(Performed 06/27/2018) Performed for Slurred speech * BASIC METABOLIC PANEL (CALCIUM TOTAL)(Performed 06/27/2018) Performed for Slurred speech * CBC W/O DIFFERENTIAL(Performed 06/27/2018) Performed for Slurred speech * GLUCOSE - POINT OF CARE(Performed 06/26/2018) * GLUCOSE - POINT OF CARE(Performed 06/26/2018) * GLUCOSE - POINT OF CARE(Performed 06/26/2018) * GLUCOSE - POINT OF CARE(Performed 06/26/2018) * VANCOMYCIN LEVEL TROUGH(Performed 06/26/2018) * GLUCOSE - POINT OF CARE(Performed 06/26/2018) * PROCALCITONIN LEVEL(Performed 06/26/2018) * PHOSPHORUS BLOOD(Performed 06/26/2018) Performed for Slurred speech * MAGNESIUM BLOOD(Performed 06/26/2018) Performed for Slurred speech * BASIC METABOLIC PANEL (CALCIUM TOTAL)(Performed 06/26/2018) Performed for Slurred speech * CBC W/O DIFFERENTIAL(Performed 06/26/2018) Performed for Slurred speech * GLUCOSE - POINT OF CARE(Performed 06/26/2018) * GLUCOSE - POINT OF CARE(Performed 06/25/2018) * GLUCOSE - POINT OF CARE(Performed 06/25/2018) * GLUCOSE - POINT OF CARE(Performed 06/25/2018) * GLUCOSE - POINT OF CARE(Performed 06/25/2018) * GLUCOSE - POINT OF CARE(Performed 06/25/2018) * GLUCOSE - POINT OF CARE(Performed 06/25/2018) * PHOSPHORUS BLOOD(Performed 06/25/2018) Performed for Slurred speech * MAGNESIUM BLOOD(Performed 06/25/2018) Performed for Slurred speech * BASIC METABOLIC PANEL (CALCIUM TOTAL)(Performed 06/25/2018) Performed for Slurred speech * CBC W/O DIFFERENTIAL(Performed 06/25/2018) Performed for Slurred speech * GLUCOSE - POINT OF CARE(Performed 06/25/2018) * GLUCOSE - POINT OF CARE(Performed 06/24/2018) * GLUCOSE - POINT OF CARE(Performed 06/24/2018) * CT CHEST ABDOMEN PELVIS W CONT(Performed 06/24/2018) Performed for Fever, unspecified fever cause * LACTIC ACID BLOOD(Performed 06/24/2018) * VANCOMYCIN LEVEL TROUGH(Performed 06/24/2018) * GLUCOSE - POINT OF CARE(Performed 06/24/2018) * LACTIC ACID BLOOD(Performed 06/24/2018) * CBC W/O DIFFERENTIAL(Performed 06/24/2018) * TROPONIN I(Performed 06/24/2018) * PROCALCITONIN LEVEL(Performed 06/24/2018) * TROPONIN I(Performed 06/24/2018) * ECHO COMPLETE(Performed 06/24/2018) Performed for Slurred speech * PHOSPHORUS BLOOD(Performed 06/24/2018) Performed for Slurred speech * MAGNESIUM BLOOD(Performed 06/24/2018) Performed for Slurred speech * BASIC METABOLIC PANEL (CALCIUM TOTAL)(Performed 06/24/2018) Performed for Slurred speech * CBC W/O DIFFERENTIAL(Performed 06/24/2018) Performed for Slurred speech * GLUCOSE - POINT OF CARE(Performed 06/24/2018) * GLUCOSE - POINT OF CARE(Performed 06/23/2018) * GLUCOSE - POINT OF CARE(Performed 06/23/2018) * GLUCOSE - POINT OF CARE(Performed 06/23/2018) * TSH(Performed 06/23/2018) * PROCALCITONIN LEVEL(Performed 06/23/2018) * TROPONIN I(Performed 06/23/2018) * LACTIC ACID BLOOD(Performed 06/23/2018) * D-DIMER(Performed 06/23/2018) * PT EVAL AND TREAT(Performed 06/23/2018) * GLUCOSE - POINT OF CARE(Performed 06/23/2018) * GLUCOSE - POINT OF CARE(Performed 06/23/2018) * TROPONIN I(Performed 06/23/2018) * LACTIC ACID BLOOD(Performed 06/23/2018) * INFLUENZA A+B PCR(Performed 06/23/2018) * TROPONIN I(Performed 06/23/2018) * MRI BRAIN WO CONTRAST(Performed 06/23/2018) Performed for Slurred speech * GLUCOSE - POINT OF CARE(Performed 06/23/2018) * LIPID PROFILE(Performed 06/23/2018) Performed for Slurred speech * TROPONIN I(Performed 06/23/2018) * LACTIC ACID BLOOD(Performed 06/23/2018) * URINALYSIS REFLEX TO MICROSCOPIC NO CULTURE(Performed 06/23/2018) * URINE DRUG SCREEN IMMUNOASSAY(Performed 06/23/2018) * URINALYSIS REFLEX TO MICROSCOPIC NO CULTURE(Performed 06/23/2018) * TROPONIN I(Performed 06/23/2018) * XR CHEST 1VW PORTABLE(Performed 06/23/2018) Performed for Tachypnea * CULTURE BLOOD(Performed 06/23/2018) * BLOOD GASES NIKOS(Performed 06/23/2018) * CK BLOOD(Performed 06/23/2018) * COMPREHENSIVE METABOLIC PANEL(Performed 06/23/2018) * PT-INR SLH(Performed 06/23/2018) * TROPONIN I(Performed 06/23/2018) * LACTIC ACID BLOOD(Performed 06/23/2018) * CULTURE BLOOD(Performed 06/23/2018) * COMPREHENSIVE METABOLIC PANEL(Performed 06/23/2018) * EKG 12-LEAD(Performed 06/23/2018) Performed for Slurred speech * ABO TYPE: RETYPE-PATIENT RESULT ONLY(Performed 06/23/2018) * CT ANGIO BRAIN NECK STROKE(Performed 06/23/2018) Performed for Slurred speech * TYPE + SCREEN PANEL(Performed 06/23/2018) * HEMOGLOBIN A1C(Performed 06/23/2018) Performed for Slurred speech * TROPONIN I(Performed 06/23/2018) * PT-INR [facility](Performed 06/23/2018) * CBC W AUTO DIFFERENTIAL(Performed 06/23/2018) * CT BRAIN STROKE(Performed 06/23/2018) Performed for Slurred speech * CREATININE BLOOD - POCT (IP) [facility](Performed 06/23/2018) Performed for Slurred speech * GLUCOSE - POINT OF CARE(Performed 06/23/2018) * CARDIAC PROCEDURE ORDER(Performed 12/13/2017) * GLUCOSE - POINT OF CARE(Performed 10/14/2017) * VAS LEFT VENOUS DUPLEX LE(Performed 10/14/2017) Performed for Cellulitis of left lower extremity * GLUCOSE - POINT OF CARE(Performed 10/14/2017) * MRI BRAIN WO CONTRAST(Performed 10/13/2017) Performed for Sepsis, due to unspecified organism * GLUCOSE - POINT OF CARE(Performed 10/13/2017) * ECHO COMPLETE(Performed 10/13/2017) * GLUCOSE - POINT OF CARE(Performed 10/13/2017) * GLUCOSE - POINT OF CARE(Performed 10/13/2017) * GLUCOSE - POINT OF CARE(Performed 10/13/2017) * ACETYLCHOLINE RECEPTOR BINDING ANTIBODY(Performed 10/13/2017) * ACETYLCHOLINE RECEPTOR BLOCKING ANTIBODY(Performed 10/13/2017) * ACETYLCHOLINE RECEPTOR MODULATING ANTIBODY(Performed 10/13/2017) * ELEUTERIO BLOOD SCREEN W/REFLEX TITER(Performed 10/13/2017) * LIPID PROFILE(Performed 10/13/2017) * GLUCOSE - POINT OF CARE(Performed 10/12/2017) * GLUCOSE - POINT OF CARE(Performed 10/12/2017) * PT EVAL AND TREAT(Performed 10/12/2017) * OT EVAL AND TREAT(Performed 10/12/2017) * GLUCOSE - POINT OF CARE(Performed 10/12/2017) * CBC W AUTO DIFFERENTIAL(Performed 10/12/2017) * BASIC METABOLIC PANEL (CALCIUM TOTAL)(Performed 10/12/2017) * GLUCOSE - POINT OF CARE(Performed 10/12/2017) * GLUCOSE - POINT OF CARE(Performed 10/12/2017) * GLUCOSE - POINT OF CARE(Performed 10/11/2017) * GLUCOSE - POINT OF CARE(Performed 10/11/2017) * GLUCOSE - POINT OF CARE(Performed 10/11/2017) * GLUCOSE - POINT OF CARE(Performed 10/11/2017) * TSH(Performed 10/11/2017) * BASIC METABOLIC PANEL (CALCIUM TOTAL)(Performed 10/11/2017) * TROPONIN I(Performed 10/11/2017) * HEMOGLOBIN A1C(Performed 10/11/2017) * CBC W/O DIFFERENTIAL(Performed 10/11/2017) * TROPONIN I(Performed 10/11/2017) * CT ANGIO BRAIN(Performed 10/10/2017) Performed for Sepsis, due to unspecified organism * CULTURE BLOOD(Performed 10/10/2017) * URINALYSIS REFLEX TO MICROSCOPIC NO CULTURE(Performed 10/10/2017) * CULTURE URINE(Performed 10/10/2017) * COMPREHENSIVE METABOLIC PANEL(Performed 10/10/2017) * CBC W AUTO DIFFERENTIAL(Performed 10/10/2017) * TROPONIN I(Performed 10/10/2017) * LACTIC ACID BLOOD(Performed 10/10/2017) * CULTURE BLOOD(Performed 10/10/2017) * XR CHEST 1VW PORTABLE(Performed 10/10/2017) Performed for Sepsis, due to unspecified organism * EKG 12-LEAD(Performed 10/10/2017) Performed for Sepsis, due to unspecified organism Results * XR SHOULDER LEFT 2VW OR MORE (09/27/2020 4:15 PM CDT) Only the most recent of3 resultswithin the time period is included. Anatomical Region Laterality Modality Upper Extremity Computed Radiogr aphy Narrative 09/27/2020 4:22 PM CDT Valerie Serna, RT(R) ? 09/28/2020 ??9:11 AM X-RAY: ??AP axillary lateral and outlet radiographs of the left shoulder obtained 09/27/2020 reveal that he has a reasonably aligned surgical neck fracture of the left proximal humerus that is in slight valgus and approximately 20 percent displaced. ??The fracture appears to be healed. ??Glenohumeral and acromiohumeral distance is preserved. ?? IMPRESSION: 1. ??left proximal humerus fracture, surgical neck, in reasonable alignment and healed. Liliane Webster MD DIAGNOSTIC IMAGING ORDERABLES * MRI BRAIN WWO CONTRAST (07/31/2020 4:44 PM CDT) Only the most recent of2 resultswithin the time period is included. Anatomical Region Laterality Modality Head Magnetic Resonan ce 07/31/2020 5:27 PM CDT Impressions 07/31/2020 5:32 PM CDT Masslike enlargement of the left caudate head and basal ganglia has resolved. There is now volume loss in this area, consistent with evolving infarction. There is no evidence of new ischemic event occurring since previous examination. *Reading Radiologist: Eliane Sanchez on 07/31/2020 at 5:32 PM Narrative 07/31/2020 5:32 PM CDT MRI Brain with and without contrast Indication: CVA, brain mass COMPARISON: March 19, 2020 Technique: The following sequences were obtained: Axial diffusion, axial dual-echo T2, sagittal, coronal and axial T1 pre- and postgadolinium, axial gradient echo, coronal and axial FLAIR. 20 mL Dotarem was administered for this examination. Findings: There is no abnormal restricted diffusion to suggest an acute ischemic event. Edema previously seen involving the left caudate head and basal ganglia has resolved. There is now volume loss, with ex vacuo enlargement of the frontal horn and anterior body of the left lateral ventricle. Subtle intrinsic high signal intensity on T1 weighted sequences and low signal intensity on susceptibility weighted sequences is consistent with hemorrhagic product. There is no intracranial mass. No abnormal extra-axial fluid collection is seen. Following administration of gadolinium, there is minimal enhancement in the area of prior infarction. No abnormal enhancement is seen elsewhere. Parenchymal volume is within normal limits for age. Nonspecific white matter changes are age appropriate. Procedure Note Eliane Sanchez MD - 07/31/2020 MRI Brain with and without contrast Indication: CVA, brain mass COMPARISON: March 19, 2020 Technique: The following sequences were obtained: Axial diffusion, axial dual-echo T2, sagittal, coronal and axial T1 pre- and postgadolinium, axial gradient echo, coronal and axial FLAIR. 20 mL Dotarem was administered for this examination. Findings: There is no abnormal restricted diffusion to suggest an acute ischemic event. Edema previously seen involving the left caudate head and basal ganglia has resolved. There is now volume loss, with ex vacuo enlargement of the frontal horn and anterior body of the left lateral ventricle. Subtle intrinsic high signal intensity on T1 weighted sequences and low signal intensity on susceptibility weighted sequences is consistent with hemorrhagic product. There is no intracranial mass. No abnormal extra-axial fluid collection is seen. Following administration of gadolinium, there is minimal enhancement in the area of prior infarction. No abnormal enhancement is seen elsewhere. Parenchymal volume is within normal limits for age. Nonspecific white matter changes are age appropriate. IMPRESSION Masslike enlargement of the left caudate head and basal ganglia has resolved. There is now volume loss in this area, consistent with evolving infarction. There is no evidence of new ischemic event occurring since previous examination. *Reading Radiologist: Eliane Sanchez on 07/31/2020 at 5:32 PM Cecil Garzon MD MR ORDERABLES * CREATININE - POCT INTERFACED (07/31/2020 3:55 PM CDT) Creatinine POCT 0.98 0.70 - 1.20 mg/dL 07/31/2020 4:07 PM CDT [facility] Blood BLOOD SPECIMEN / Unknown 07/31/2020 3:55 PM CDT 07/31/2020 4:07 PM CDT Cecil Garzon MD LAB - POINT OF CARE ORDERABLES Performing Organization Address [facility] de Phone Number [facility] [address] [place] [id number] * CARDIAC EKG ORDER (03/23/2020 8:22 PM 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) Only the most recent of2 resultswithin the time period is included. Narrative 03/23/2020 8:22 PM 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 Ordered by an unspecified provider. Scanned Document CARDIAC SERVICES ORD ERABLES * CARDIAC RHYTHM STRIP ORDER (03/23/2020 8:22 PM 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) Narrative 03/23/2020 8:22 PM 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 Ordered by an unspecified provider. Scanned Document CARDIAC SERVICES ORD ERABLES * (ABNORMAL) GLUCOSE - POINT OF CARE (03/21/2020 11:55 AM 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) Only the most recent of60 resultswithin the time period is included. [facility] Glucose WB/POC 190(H) 70 - 106 mg/dL 03/21/2020 12:16 PM 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 [facility] Specimen Type Arterial/C apillary 03/21/2020 12:16 PM 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 [facility] Blood BLOOD SPECIMEN / Unknown 03/21/2020 11:55 AM 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 03/21/2020 12:16 PM 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 Cecil Garzon MD LAB - POINT OF CARE ORDERABLES Performing Organization Address [facility] Co de Phone Number [facility] [address] [place] [phone] * (ABNORMAL) BASIC METABOLIC PANEL (CALCIUM TOTAL) (03/21/2020 4:43 AM 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) Only the most recent of10 resultswithin the time period is included. [facility] Glucose 170(H) 70 - 105 mg/dL 03/21/2020 5:34 AM [facility] Sodium 134(L) 136 - 145 mmol/L 03/21/2020 5:34 AM [facility] Potassium 3.7 3.5 - 5.1 mmol/L 03/21/2020 5:34 AM [facility] Chloride 101 98 - 107 mmol/L 03/21/2020 5:34 AM [facility] CO2 24 23 - 31 mmol/L 03/21/2020 5:34 AM [facility] Calcium 8.7 8.4 - 10.4 mg/dL 03/21/2020 5:34 AM [facility] Anion Gap 9 8 - 18 mmol/L 03/21/2020 5:34 AM [facility] Comment:Attention clinician: Reference Range change. BUN 12 8.4 - 25.7 mg/dL 03/21/2020 5:34 AM [facility] Creatinine 0.75 0.72 - 1.25 mg/dL 03/21/2020 5:34 AM [facility] eGFR by MDRD >60 >60 mL/min/1.7 3m2 03/21/2020 5:34 AM [facility] eGFR by MDRD >60 >60 mL/min/1.7 3m2 03/21/2020 5:34 AM [facility] Blood BLOOD SPECIMEN / Unknown Venipuncture / Unknown 03/21/2020 4:43 AM 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 03/21/2020 4:55 AM 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 Liz Castillo IT PORTFOLIO MANAGER-ASSISTANT COMMISSIONER LAB - CHEMISTRY ORDERABLES [facility] [address] [place] [address] * CT CHEST ABDOMEN PELVIS W CONT (03/20/2020 7:16 AM 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) Only the most recent of2 resultswithin the time period is included. Anatomical Region Laterality Modality Chest, Abdomen, Pelvis Computed Tomography 03/20/2020 11:3 4 AM 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 Impressions 03/20/2020 2:52 PM 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 NO CT EVIDENCE OF A PRIMARY MALIGNANCY. ACUTE IMPACTED COMMINUTED FRACTURE SURGICAL NECK LEFT HUMERUS. 9 mm NONOBSTRUCTING STONE, LOWER POLE RIGHT KIDNEY. Edited by Anna Art on 03/20/2020 12:08 PM *Reading Radiologist: Ronan Levin on 03/20/2020 at 2:52 PM Narrative 03/20/2020 2:52 PM 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 CT THORAX WITH INTRAVENOUS CONTRAST CT ABDOMEN WITH INTRAVENOUS CONTRAST CT PELVIS WITH INTRAVENOUS CONTRAST CLINICAL INDICATION: Diffuse generalized weakness. Intracranial metastasis with unknown primary malignancy. COMPARISON: Left shoulder x-ray 03/18/2020. TECHNIQUE: Axial CT imaging from the lung apices through the pubic symphysis was performed following 100 mL Isovue-370 intravenous contrast administration. Coronal and sagittal multiplanar reformatted images were created. FINDINGS: CT THORAX: No noncalcified pulmonary nodules or masses. Small densely calcified granuloma, superior segment left lower lobe. No pulmonary infiltrates. No primary pleural masses. No pleural effusion. No pneumothorax. No pathologically enlarged supraclavicular, hilar, mediastinal, or axillary lymph nodes. Redemonstration of an impacted comminuted fracture involving the surgical neck of the left humerus. Fractures extend through both the lesser and greater tuberosities. Left shoulder joint effusion and diffuse soft tissue swelling about the left humerus fracture noted. No osteoblastic or osteolytic lesions. CT ABDOMEN AND PELVIS: No hepatic masses. Liver normal in size. A 9 mm nonobstructing stone, lower pole right kidney. Lower pole right parapelvic cyst noted. Small bilateral cortical cysts are noted. No solid renal mass lesions. Gallbladder, adrenal glands, spleen, and pancreas are within normal limits. Small and large bowel loops are normal in caliber. No bowel wall thickening. Mild sigmoid diverticulosis. Prostate gland is normal in size. Bladder wall is normal in thickness. Fat-containing left inguinal hernia noted. No pathologically enlarged lymph nodes. No osteoblastic or osteolytic lesions. Chronic facet arthropathy, lower lumbar spine. Procedure Note Ronan Levin MD - 03/20/2020 CT THORAX WITH INTRAVENOUS CONTRAST CT ABDOMEN WITH INTRAVENOUS CONTRAST CT PELVIS WITH INTRAVENOUS CONTRAST CLINICAL INDICATION: Diffuse generalized weakness. Intracranial metastasis with unknown primary malignancy. COMPARISON: Left shoulder x-ray 03/18/2020. TECHNIQUE: Axial CT imaging from the lung apices through the pubic symphysis was performed following 100 mL Isovue-370 intravenous contrast administration. Coronal and sagittal multiplanar reformatted images were created. FINDINGS: CT THORAX: No noncalcified pulmonary nodules or masses. Small densely calcified granuloma, superior segment left lower lobe. No pulmonary infiltrates. No primary pleural masses. No pleural effusion. No pneumothorax. No pathologically enlarged supraclavicular, hilar, mediastinal, or axillary lymph nodes. Redemonstration of an impacted comminuted fracture involving the surgical neck of the left humerus. Fractures extend through both the lesser and greater tuberosities. Left shoulder joint effusion and diffuse soft tissue swelling about the left humerus fracture noted. No osteoblastic or osteolytic lesions. CT ABDOMEN AND PELVIS: No hepatic masses. Liver normal in size. A 9 mm nonobstructing stone, lower pole right kidney. Lower pole right parapelvic cyst noted. Small bilateral cortical cysts are noted. No solid renal mass lesions. Gallbladder, adrenal glands, spleen, and pancreas are within normal limits. Small and large bowel loops are normal in caliber. No bowel wall thickening. Mild sigmoid diverticulosis. Prostate gland is normal in size. Bladder wall is normal in thickness. Fat-containing left inguinal hernia noted. No pathologically enlarged lymph nodes. No osteoblastic or osteolytic lesions. Chronic facet arthropathy, lower lumbar spine. IMPRESSION NO CT EVIDENCE OF A PRIMARY MALIGNANCY. ACUTE IMPACTED COMMINUTED FRACTURE SURGICAL NECK LEFT HUMERUS. 9 mm NONOBSTRUCTING STONE, LOWER POLE RIGHT KIDNEY. 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 Edited by Ana Orourke on 03/20/2020 8:43 AM *Reading Radiologist: Cory Greene on 03/20/2020 at 9:09 AM Narrative 03/20/2020 9:09 AM 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 CT BRAIN WITHOUT CONTRAST INDICATION: Stroke. COMPARISON: MRI brain March 19, 2020 TECHNIQUE: Axial images of the brain were obtained without contrast and reconstructions performed. FINDINGS: The previously seen findings in the left caudate head and basal ganglia appear to represent evolving acute infarct. No visible hemorrhage. Mild mass effect upon the left frontal horn of the lateral ventricle. Minimal less than 2 mm left to right midline shift locally. Paranasal sinuses and mastoid air cells are clear. Procedure Note Cory Greene MD - 03/20/2020 CT BRAIN WITHOUT CONTRAST INDICATION: Stroke. COMPARISON: MRI brain March 19, 2020 TECHNIQUE: Axial images of the brain were obtained without contrast and reconstructions performed. FINDINGS: The previously seen findings in the left caudate head and basal ganglia appear to represent evolving acute infarct. No visible hemorrhage. Mild mass effect upon the left frontal horn of the lateral ventricle. Minimal less than 2 mm left to right midline shift locally. Paranasal sinuses and mastoid air cells are clear. 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 Edited by Ana Orourke on 03/20/2020 8:43 AM *Reading Radiologist: Cory Greene on 03/20/2020 at 9:09 AM Sean Bright MD CT ORDERABLES * PSA FREE + TOTAL PANEL (03/20/2020 5:37 AM 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) PSA 0.3 0.0 - 4.0 ng/mL 03/21/2020 12:09 PM 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 [facility] Comment: Mor ECLIA methodology. According to the [place] [employer], Serum PSA should decrease and remain at undetectable levels after radical prostatectomy. The AUA defines biochemical recurrence as an initial PSA value 0.2 ng/mL or greater followed by a subsequent confirmatory PSA value 0.2 ng/mL or greater. Values obtained with different assay methods or kits cannot be used interchangeably. Results cannot be interpreted as absolute evidence of the presence or absence of malignant disease. PSA Free 0.09 N/A ng/mL 03/21/2020 12:09 PM 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 [facility] Comment:Mor ECLIA methodol ogy. PSA % Free 30.0 % 03/21/2020 12:09 PM 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 [facility] Comment: The table below lists the probability of prostate cancer for men with non-suspicious SABRINA results and total PSA between 4 and 10 ng/mL, by patient age (Ihsan et al, FABI 1998, 279:1542). ?% Free PSA ? 50-64 yr ?65-75 yr ?0.00-10.00% ?56% ? 55% ? 10.01-15.00% ?24% ? 35% ? 15.01-20.00% ?17% ? 23% ? 20.01-25.00% ?10% ? 20% ?>25.00% ? 5% ?9% Please note: ??Ihsan et al did not make specific ?recommendations regarding the use of ?percent free PSA for any other population ?of men. Blood BLOOD SPECIMEN / Unknown Venipuncture / Unknown 03/20/2020 5:37 AM 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 03/20/2020 5:44 AM 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 Narrative [facility] ([facility]) - 03/21/2020 12:09 PM 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 Performed at: ??01 - [facility] [address], [place], [place] ??[id number] Funeral Director And Embalmer: Nicolas Lomeli PhD, Phone: ??[phone] Liz Castillo IT PORTFOLIO MANAGER-ASSISTANT COMMISSIONER LAB - CHEMISTRY ORDERABLES [facility] DP) [address] [place] [address] * CT SHOULDER LEFT WO CONTRAST (03/19/2020 11:22 AM 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) Anatomical Region Laterality Modality Upper Extremity Computed Tomogra phy 03/19/2020 11:2 5 AM 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 Impressions 03/19/2020 11:27 AM 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 Left proximal humerus fracture. There does not appear to be a large amount of malalignment with a least 4 dominant fracture fragments being present. *Reading Radiologist: Cory Jenkins on 03/19/2020 at 11:27 AM Narrative 03/19/2020 11:27 AM 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 CT left shoulder without contrast HISTORY: Closed fracture of the left humerus 59-year-old male Comparison plain film shoulder exam March 18, 2020 There is primarily a transverse fracture through the surgical neck. Additional fracture plane extends in the coronal plane across the lesser tuberosity. There is an additional vertical fracture plane without distraction involving the greater tuberosity. No glenoid fracture. Clavicles intact. The AC joint spacing is normal. The adjacent left upper lung is clear. Old left rib deformity. Procedure Note Cory Jenkins MD - 03/19/2020 CT left shoulder without contrast HISTORY: Closed fracture of the left humerus 59-year-old male Comparison plain film shoulder exam March 18, 2020 There is primarily a transverse fracture through the surgical neck. Additional fracture plane extends in the coronal plane across the lesser tuberosity. There is an additional vertical fracture plane without distraction involving the greater tuberosity. No glenoid fracture. Clavicles intact. The AC joint spacing is normal. The adjacent left upper lung is clear. Old left rib deformity. IMPRESSION Left proximal humerus fracture. There does not appear to be a large amount of malalignment with a least 4 dominant fracture fragments being present. *Reading Radiologist: Cory Jenkins on 03/19/2020 at 11:27 AM Liliane Webster MD CT ORDERABLES * (ABNORMAL) CBC W/O DIFFERENTIAL (03/19/2020 5:19 AM [facility] [email or web address] Only the most recent of8 resultswithin the time period is included. WBC 8.1 4.4 - 10.7 x10E9/L 03/19/2020 5:34 AM [facility] RBC 4.25 3.80 - 5.40 x10E12/L 03/19/2020 5:34 AM [facility] Hemoglobin 12.8 12.0 - 17.6 gm/dL 03/19/2020 5:34 AM [facility] Hematocrit 35.9 35.2 - 51.7 % 03/19/2020 5:34 AM [facility] MCV 84.5 80.7 - 98.3 fl 03/19/2020 5:34 AM [facility] MCH 30.1 26.7 - 34.0 pg 03/19/2020 5:34 AM [facility] MCHC 35.7 30.8 - 35.9 gm/dL 03/19/2020 5:34 AM [facility] Platelet Count 204 153 - 416 x10E9/L 03/19/2020 5:34 AM [facility] RDW-CV 12.5 12.1 - 14.9 % 03/19/2020 5:34 AM [facility] MPV 8.5(L) 9.4 - 12.9 fl 03/19/2020 5:34 AM [facility] Blood BLOOD SPECIMEN / Unknown Venipuncture / Unknown 03/19/2020 5:19 AM 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 03/19/2020 5:26 AM [facility] [email or web address]] Liz Castillo IT PORTFOLIO MANAGER-ASSISTANT COMMISSIONER LAB - HEMATOLOG Y ORDERABLES [facility] [address] [place] [address] * TROPONIN I (03/18/2020 4:51 AM [facility] [email or web address]]) Only the most recent of14 resultswithin the time period is included. Troponin I <0.010 <0.038 ng/mL 03/18/2020 6:11 AM [facility] Blood BLOOD SPECIMEN / Unknown Venipuncture / Unknown 03/18/2020 4:51 AM 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 03/18/2020 5:44 AM 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 Vida Mckinney MD LAB - CHEMISTRY AYANA Hendricks Organization Address City/State/ZIP Co de Phone Number [facility] [address] [place] [address] * (ABNORMAL) HEMOGLOBIN A1C (03/18/2020 4:51 AM 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) Only the most recent of3 resultswithin the time period is included. Pathologist [facility] Hemoglobin A1c 8.8(H) 4.2 - 5.6 % 03/18/2020 6:06 AM 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 [facility] Estimated Average Glucose 206 mg/dL 03/18/2020 6:06 AM 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 [facility] Blood BLOOD SPECIMEN / Unknown Venipuncture / Unknown 03/18/2020 4:51 AM 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 03/18/2020 5:44 AM 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 Narrative [facility] - 03/18/2020 6:06 AM 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 The following cutoff levels are recommended by [place] [employer]. ?? A1c ??> 6.5% : considered as diabetes if two separate tests >6.5% or in an appropriate clinical setting. A1c ??5.7% - 6.4% : considered as prediabetes (suggest increased risk for diabetes and cardiovascular disease) Control target level: ??Should be individualized. ??< 7 ??for general (non- ) , ??< 8% less stringent goal, ??< 6.5 ??more stringent goal. Hemoglobin A1c measurements are used as an aid in the diagnosis of diabetic mellitus, as an aid to identify patients who may be at the risk for developing diabetic mellitus, and for the monitoring long-term blood glucose control in individuals with diabetes mellitus. ??This test should not replace glucose testing for patients with Type 1 diabetes, pediatric patients, or women. ??Falsely low HbA1c results may be observed in patients with clinical conditions that shorten erythrocyte life span or decrease mean erythrocyte age such as the presence of unstable hemoglobin variants, elevated hemoglobin F level ??or other causes of hemolytic anemia . ??HbA1c may not accurately reflect glycemic control when clinical conditions that affect erythrocyte survival are present. ??Severe Iron deficiency anemia may yield falsely high results. ??Hemoglobin A1c assay should not be used to diagnose or monitor diabetes in patients with malignancy, recent blood transfusion, chronic kidney or liver disease. ?? This method may yield falsely low results when hemoglobin (HbF) exceeds 5% in the specimen. Vida Mckinney MD LAB - CHEMISTRY AYANA DOE Performing Organization Address [facility] Co de Phone Number [facility] [address] [place] [address] * (ABNORMAL) LIPID PROFILE (03/18/2020 4:51 AM 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) Only the most recent of3 resultswithin the time period is included. Cholesterol 226(H) <200 mg/dL 03/18/2020 6:09 AM 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 [facility] Triglycerides 309(H) <150 mg/dL 03/18/2020 6:09 AM 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 [facility] HDL Cholesterol 37(L) >40 mg/dL 6:09 AM [facility] LDL Calculated 127 <130 mg/dL 03/18/2020 6:09 AM [facility] VLDL Calculated 62(H) <=30 mg/dL 6:09 AM [facility] Chol HDL Ratio 6.1(H) <4.5 03/18/2020 6:09 AM 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 [facility] LDL/HDL Ratio 3.4 <5.0 03/18/2020 6:09 AM 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 [facility] Blood BLOOD SPECIMEN / Unknown Venipuncture / Unknown 03/18/2020 4:51 AM 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 03/18/2020 5:44 AM 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 Vida cMkinney MD LAB - CHEMISTRY AYANA DOE Performing Organization Address [facility] de Phone Number [facility] [address] [place] [address] * (ABNORMAL) URINE MICROSCOPIC ONLY REFLEX TO CULTURE (03/17/2020 10:05 PM 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) Reflex Status Culture not indicated 03/17/2020 11:27 PM 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 [facility] RBC UA 3-5 None Seen, 0-2, 3-5 # /hpf 03/17/2020 11:27 PM 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 [facility] WBC UA 0-5 None Seen, 0-5 # /hpf 03/17/2020 11:27 PM 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 [facility] Bacteria UA Trace(A) None Seen 03/17/2020 11:27 PM 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 [facility] Squamous Epithelial Cells None Seen None Seen, 0-2, 3-5 /hpf 03/17/2020 11:27 PM 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 [facility] Mucus UA 4+ /LPF 03/17/2020 11:27 PM 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 [facility] Urine URINE SPECIMEN OBTAINED BY CLEAN CATCH PROCEDURE / Unknown Collection / Unknown 03/17/2020 10:05 PM 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 03/17/2020 11:15 PM 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 Narrative [facility] - 03/17/2020 11:27 PM 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 Vida Mckinney MD LAB - URINALYSIS ORD ERABLES Performing Organization Address City/State/[facility] Co de Phone Number [facility] [address] [place] [address] * (ABNORMAL) URINALYSIS REFLEX MICROSCOPIC REFLEX CULTURE (03/17/2020 10:05 PM 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) Color UA Yellow Straw, Yellow 03/17/2020 11:26 PM 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 [facility] Clarity UA Cloudy(A) Clear 03/17/2020 11:26 PM 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 [facility] Glucose UA 3+(A) Negative 03/17/2020 11:26 PM 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 [facility] Bilirubin UA Negative Negative 03/17/2020 11:26 PM 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 [facility] Ketone UA 1+(A) Negative 03/17/2020 11:26 PM 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 [facility] Specific [place] UA 1.025 1.005 - 1.030 03/17/2020 11:26 PM 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 [facility] Blood UA Negative Negative 03/17/2020 11:26 PM 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 [facility] pH UA 5.0 5.0 - 8.0 pH 03/17/2020 11:26 PM 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 [facility] Protein UA 2+(A) Negative 03/17/2020 11:26 PM 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 [facility] Urobilinogen UA Negative Negative mg/dL 03/17/2020 11:26 PM 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 [facility] Nitrite UA Negative Negative 03/17/2020 11:26 PM 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 [facility] Leukocyte UA Negative Negative 03/17/2020 11:26 PM 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 [facility] Urine Microscopy Urine microscopy to follow 03/17/2020 11:26 PM 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 [facility] Reflex Status Culture not indicated 03/17/2020 11:26 PM 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 [facility] Urine URINE SPECIMEN OBTAINED BY CLEAN CATCH PROCEDURE / Unknown Collection / Unknown 03/17/2020 10:05 PM 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 03/17/2020 11:15 PM 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 Narrative [facility] - 03/17/2020 11:26 PM 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 Vida Mckinney MD LAB - URINALYSIS ORD ERABLES [facility] [address] [place] [address] * CT ANGIO BRAIN NECK STROKE (03/17/2020 6:45 PM 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) Only the most recent of2 resultswithin the time period is included. Anatomical Region Laterality Modality Head Computed Tomogra phy 03/17/2020 7:14 PM 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 Impressions 03/17/2020 7:22 PM 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 Calcified plaque throughout distal left vertebral artery with poor opacification Otherwise unremarkable carotids Brain: The internal carotid arteries, middle cerebral arteries, anterior cerebral arteries, vertebral arteries, posterior cerebral arteries, basilar artery, and branch vessels of the [place] are widely patent without evidence of vessel stenosis or vessel occlusion. No intracranial aneurysms are identified. There are no gross arterio-venous malformations. Using the NASCET criteria there is less than 50% stenosis bilateral intracranial internal carotid arteries. Impression: Unremarkable brain CTA *Reading Radiologist: Everett Umanzor on 03/17/2020 at 7:22 PM Narrative 03/17/2020 7:22 PM 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 CT angiography neck CT angiography head CT 3-D reconstructed images on independent workstation Clinical Indication: Stroke Technique: Axial CT images from the transverse aortic arch through the cranial vertex were obtained following the administration of 80 cc Isovue-370 intravenous contrast. Multiplanar reformatted, maximum intensity projection, and volume rendered reconstructions of the arterial vasculature of the neck and brain was performed on an independent workstation. The stenosis calculations are based on NASCET criteria. Findings: Neck: There is wide patency of the common carotid, internal carotid, external carotid, and right vertebral arteries. There is atherosclerotic calcification throughout the distal left vertebral artery. There is poor opacification of the distal left vertebral artery. The right vertebral artery is dominant. There is no evidence of vessel stenosis or vessel occlusion. Using the NASCET criteria there is less than 50% stenosis bilateral internal carotid arteries. There are degenerative changes of the cervical spine. Procedure Note Everett Umanzor MD - 03/17/[address] angiography head CT 3-D reconstructed images on independent workstation Clinical Indication: Stroke Technique: Axial CT images from the transverse aortic arch through the cranial vertex were obtained following the administration of 80 cc Isovue-370 intravenous contrast. Multiplanar reformatted, maximum intensity projection, and volume rendered reconstructions of the arterial vasculature of the neck and brain was performed on an independent workstation. The stenosis calculations are based on NASCET criteria. Findings: Neck: There is wide patency of the common carotid, internal carotid, external carotid, and right vertebral arteries. There is atherosclerotic calcification throughout the distal left vertebral artery. There is poor opacification of the distal left vertebral artery. The right vertebral artery is dominant. There is no evidence of vessel stenosis or vessel occlusion. Using the NASCET criteria there is less than 50% stenosis bilateral internal carotid arteries. There are degenerative changes of the cervical spine. IMPRESSION Calcified plaque throughout distal left vertebral artery with poor opacification Otherwise unremarkable carotids Brain: The internal carotid arteries, middle cerebral arteries, anterior cerebral arteries, vertebral arteries, posterior cerebral arteries, basilar artery, and branch vessels of the [place] are widely patent without evidence of vessel stenosis or vessel occlusion. No intracranial aneurysms are identified. There are no gross arterio-venous malformations. Using the NASCET criteria there is less than 50% stenosis bilateral intracranial internal carotid arteries. Impression: Unremarkable brain CTA *Reading Radiologist: Everett Umanzor on 03/17/2020 at 7:22 PM Vida Mckinney MD CT ORDERABLES * ECHOCARDIOGRAM 2D WITH DOPPLER (03/17/2020 6:45 PM 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) 03/17/2020 6:45 PM 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 Narrative Procedure Note Praveen Brooks MD - 03/20/2020 . [facility] [id number] [place] [address] [place] [address] Echocardiography Examination Transthoracic Name: NOLAN RENE MPI#: MR#: [id number] Admission Number: [id number] Study Date: 03/20/2020 Study Time: 09:05 AM Date Of : 1960 Age: 59 years Height: 71 in. (180.3 cm) Weight: 248 lbs. (112.49 kg) BSA: 2.31 m2 Gender: Male Blood Pressure: 128 mmHg / 82 mmHg Heart Rate: 88 bpm Exam Details Procedure Ordered: ECHOCARDIOGRAM 2D W/DOPPLER Procedure Components: Complete 2D, M-mode, complete spectral Doppler, color Doppler, Bubble Study, Definity Procedure Status: Routine study Image Quality: Technically Difficult Contrast: Intravenous contrast (Definity) was administered to opacify the left ventricle. Facility Location: [facility] Indication: Prior CVA Procedure Refrigerating Machine Operator: Chepe Ríos RDCS Ordering Provider: VIDA MCKINNEY MD Reading Physician: Praveen Brooks MD Reading Group: [facility] Conclusions Left Ventricle: ? ? Left ventricle is normal in size. ? ? Normal global systolic left ventricular function. ? ? EF 60 %. ? ? Left ventricle wall thickness is moderately increased. ? ? There are no regional wall motion abnormalities. ? ? Doppler parameters are consistent with abnormal left ventricular relaxation (Grade 1 diastolic dysfunction). Overall Conclusions: ? ? Technically difficult study due to poor acoustic windows ? ? Definity-enhanced images show complete opacification of the left ventricular cavity without a filling defect Follow up: Patient: NOLAN RENE Study Date: 03/20/2020 09:05 AM Page 1 of 3 Findings Left Ventricle: Left ventricle is normal in size. Normal global systolic left ventricular function. EF evaluated by biplane method of disks. EF 60 %. Left ventricle wall thickness is moderately increased. There are no regional wall motion abnormalities. Doppler parameters are consistent with abnormal left ventricular relaxation (Grade 1 diastolic dysfunction). Right Ventricle: Normal size right ventricle. Right ventricular wall thickness is normal. Right ventricular systolic function is normal. Pulmonary artery pressure normal. Left Atrium: The left atrium is normal in size. Right Atrium: The right atrium is normal in size. Mitral Valve: Mitral leaflets exhibit normal cuspal separation. No mitral regurgitation. No mitral valve stenosis. Aortic Valve: Aortic leaflets exhibit normal cuspal separation. No aortic valve regurgitation. There is no aortic stenosis. Tricuspid Valve: Tricuspid valve leaflets are normal. No tricuspid regurgitation. No tricuspid valve stenosis. Pulmonic Valve: Pulmonic leaflets exhibit normal cuspal separation. No pulmonic valve regurgitation is evident. There is no pulmonic valve stenosis. Aorta: The aorta is normal. No dilation of the ascending aorta. The aortic root exhibits normal size. Great Vessels: IVC: The inferior vena cava is normal in size and course. Pericardium: The pericardium is normal in appearance. No pericardial effusion. Clinical Data Comment: Hx of DM; HTN Measurements Anatomy Label Value Normal Value Aorta AoRoot, MM 3.7 cm (2.2cm - 3.7cm) Aortic Valve AV Vmean 1.33 m/s Aortic Valve AV VTI 29.29 cm Aortic Valve AV PGmax 12 mmHg Aortic Valve AV PGmean 8 mmHg Aortic Valve AV Vmax, Curve 1.71 m/s (1m/s - 1.7m/s) Aortic Valve LVOT VTI / AV VTI 0.75 Aortic Valve YVON D (continuity eq. VTI) 2.6 cm?? Aortic Valve YVON Index (continuity 1.13 cm??/m?? eq.Vmax) Aortic Valve LVOT Vmax / AV Vmax 0.74 Interventricular septum IVSd, 2D 1.9 cm (0.6cm - 1.1cm) Left Atrium LADs, MM 3.1 cm (3cm - 4cm) Left Atrium LA/AO Ratio, MM 0.84 Left Ventricle LVOT Vmax 1.27 m/s (0.7m/s - 1.1m/s) Patient: NOLAN RENE Study Date: 03/20/2020 09:05 AM Page 2 of 3 Left Ventricle LVOTd 2.1 cm (1.9cm - 2.1cm) Left Ventricle LVOT VTI 21.87 cm (18cm - 22cm) Left Ventricle LVOT PGmax 7 mmHg Left Ventricle LVEF visual 60 % (55% - 75%) Left Ventricle LVDd, 2D 4.3 cm (4.2cm - 5.9cm) Left Ventricle LVDs, 2D 3.4 cm (2.2cm - 3.5cm) Left Ventricle LVPWd, 2D 1.4 cm (0.6cm - 1cm) Left Ventricle FS, 2D 20.93 % Left Ventricle LVEDV, BP 86 ml (67ml - 155ml) Left Ventricle LVESV, BP 38 ml (22ml - 58ml) Left Ventricle LVEDV Index, BP 37.2 ml/m?? (35ml/m?? - 75ml/m??) Left Ventricle LVESV Index, BP 16.5 ml/m?? (12ml/m?? - 30ml/m??) Left Ventricle LVOT PGmean 4 mmHg Left Ventricle LVOT Vmean 0.99 m/s Left Ventricle Diastolic MV E Vmax 0.73 m/s Function Left Ventricle Diastolic MV A Vmax 0.9 m/s Function Left Ventricle Diastolic MV E/A 0.81 Function Left Ventricle Diastolic MV DT 200 ms Function Mitral Valve MVA PHT 3.8 cm?? Mitral Valve MV PHT 58 ms Mitral Valve MV Dec Coffey 3.66 m/s?? 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 ??on 09/13/2018 12:27 PM . Narrative 09/13/2018 12:27 PM CDT Procedure: Cerebral angiogram Comparison study: History: The patient a 58 years -year-old Male. Who presents with vertebrobasilar stenosis . Heis here for catheter angiography to delineate the exact angioarchitecture as part of pre-operative planning. Social Service Manager: Arsenio Barragan Vessels: Ultrasound guided access of femoral artery Right internal carotid artery angiogram: Cerebral Left internal carotid artery angiogram: Cerebral Right vertebral artery angiogram: Cerebral Left vertebral artery angiogram: Cerebral Right femoral artery angiogram Anesthesia: Moderate sedation Procedural detail: The risks, benefits, and alternatives to procedure were discussed in detail with the patient and his family. These included but were not limited to the risk of blood loss, vessel injury, stroke, renal injury, and contrast allergy. The patient was brought to the biplane angiography suite where he underwent prep and drape procedures. Limited ultrasound of the common femoral artery demonstrated a patent vessel. The take off of the profunda and other arteries were identified. A carreon scale image was documented. The right common femoral artery was accessed using a micropuncture needle. The needle entry was documented. Following a series of exchanges, a 6 [place]ian 30 cm Brite tip sheath was placed in the right femoral artery and a 5 [place]ian Prim[place] 2 catheter was navigated into the aortic arch. The catheter was used to select the left subclavian artery followed by the left vertebral artery and a cerebral angiogram was obtained. The catheter was returned to the arch and used to select the left common carotid artery followed by the left internal carotid artery and a cerebral angiogram was obtained. The catheter was returned to the arch and used to select the brachiocephalic artery followed by the right common carotid artery and finally the right internal carotid artery and a cerebral angiogram was obtained. The catheter was returned to the brachiocephalic artery and used to select the right subclavian artery followed by the right vertebral artery and a cerebral angiogram was obtained. The right femoral artery angiogram was obtained through the sheath. All catheters and sheaths were removed from the arterial system. Hemostasis was achieved using a 6 [place]ian Angio-Seal closure device. Hemostasis was immediate at the end of the closure procedure. The right dorsalis pedis pulse was palpable at the end of the closure procedure. The patient tolerated the procedure without immediate complications. He was returned to the recovery area and hemodynamically stable condition neurologically unchanged. The estimated blood loss was less than 10 mL. A total of ??18.4 ??minutes of fluoroscopic time and 125 ml of Omnipaque-300 contrast were utilized for the study. Findings: There was good arterial, capillary, and venous opacification of all angiographic runs. 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 The right vertebral artery angiogram reveals a V4 segment with 40% stenosis. The vertebrobasilar junction that is normal in course and caliber. The remainder of the posterior circulation ??normal in course and caliber. The left internal carotid artery angiogram reveals a normal course and caliber the intracranial internal carotid artery. The middle cerebral artery and anterior cerebral artery are also normal in course and caliber as is the venous drainage. The right internal carotid artery angiogram reveals a normal course and caliber the intracranial internal carotid artery. The middle cerebral artery and anterior cerebral artery are also normal in course and caliber as is the venous drainage. The right femoral artery angiogram reveals a puncture site above the femoral bifurcation. Procedure Note Aleyda Barragan MD - 09/13/2018 Procedure: Cerebral angiogram Comparison study: History: The patient a 58 years -year-old Male. Who presents with vertebrobasilar stenosis . Heis here for catheter angiography todelineate the exact angioarchitecture as part of pre-operative planning. Social Service Manager: Arsenio Barragan Vessels: Ultrasound guided access of femoral artery Right internal carotid artery angiogram: Cerebral Left internal carotid artery angiogram: Cerebral Right vertebral artery angiogram: Cerebral Left vertebral artery angiogram: Cerebral Right femoral artery angiogram Anesthesia: Moderate sedation Procedural detail: The risks, benefits, and alternatives to procedurewere discussed in detail with the patient and his family. These included but were not limited to the risk of blood loss, vessel injury, stroke, renal injury, and contrast allergy. The patient was brought to the biplane angiography suite where he underwent prep and drape procedures. Limited ultrasound of the common femoral artery demonstrated a patent vessel.The take off of the profunda and other arteries were identified. A grayscale image was documented. The right common femoral artery was accessed usinga micropuncture needle. The needle entry was documented. Following aseries of exchanges, a 6 [place]ian 30 cm Brite tip sheath was placed in the right femoral artery and a 5 Montserratian Yoder 2 catheter was navigated into the aortic arch. The catheter was used to select the left subclavian artery followed by the left vertebral artery and a cerebral angiogram was obtained. The catheter was returned to the arch and used to select the left common carotid artery followed by the left internal carotid artery and a cerebral angiogram was obtained. The catheter was returned to the arch and used to select the brachiocephalic artery followed by the right common carotid artery and finally the right internal carotid artery komal cerebral angiogram was obtained. The catheter was returned to the brachiocephalic artery and used to select the right subclavian artery followed by the right vertebral artery and a cerebral angiogram was obtained. The right femoral artery angiogram was obtained through the sheath. All catheters and sheaths were removed from the arterial system. Hemostasis was achieved using a 6 [place]ian Angio-Seal closure device. Hemostasis was immediate at the end of the closure procedure. The right dorsalis pedis pulse was palpable at the end of the closure procedure. The patient tolerated the procedure without immediate complications. He was returned to the recovery area and hemodynamically stable condition neurologically unchanged. The estimated blood loss was less than 10 mL. A total of 18.4 minutes of fluoroscopic time and 125 ml ofOmnipaque-300 contrast were utilized for the study. Findings: There was good arterial, capillary, and venous opacification of all angiographic runs. The left vertebral artery angiogram reveals a hypoplastic vertebralartery with multifocal stenosis of the V4 segment. The right vertebral artery angiogram reveals a V4 segment with 40% stenosis. The vertebrobasilar junction that is normal in course and caliber. The remainder of the posterior circulation normal in courseand caliber. The left internal carotid artery angiogram reveals a normal course and caliber the intracranial internal carotid artery. The middle cerebral artery and anterior cerebral artery are also normal in course andcaliber as is the venous drainage. The right internal carotid artery angiogram reveals a normal course and caliber the intracranial internal carotid artery. The middle cerebral artery and anterior cerebral artery are also normal in course andcaliber as is the venous drainage. The right femoral artery angiogram reveals a puncture site above the femoral bifurcation. 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 on 09/13/2018 12:27 PM . Aleyda Barragan MD IR ORDERABLES * PT-INR [facility] (08/12/2018 11:47 AM CDT) Only the most recent of3 resultswithin the time period is included. PT 13.2 12.1 - 14.8 Seconds 08/12/2018 12:13 PM CDT [facility] INR 1.1 See Comment 08/12/2018 12:13 PM CDT [facility] Comment: The suggested therapeutic range for standard coumadin (warfarin) therapy is an INR of 2.0-3.0. For high-risk patients (Mechanical Mitral Valve Prosthesis, etc.), the suggested prophylactic therapeutic range is an INR of 2.5-3.5. Blood BLOOD SPECIMEN / Unknown Venipuncture / Unknown 08/12/2018 11:47 AM CDT 08/12/2018 11:52 AM CDT Aleyda Barragan MD LAB - COAGULATION OR DERABLES [address] [phone] * (ABNORMAL) PROCALCITONIN LEVEL (06/27/2018 4:10 AM CDT) Only the most recent of4 resultswithin the time period is included. PROCALCITONIN 0.85(H) <=0.10 ng/mL 06/27/2018 5:07 AM CDT [facility] Blood BLOOD SPECIMEN / Unknown Lab Venipuncture / Unknown 06/27/2018 4:10 AM CDT 06/27/2018 4:19 AM CDT Narrative [facility] - 06/27/2018 5:07 AM CDT The change in procalcitonin (PCT) concentration over time provides support in decision making on antibiotic discontinuation for suspected or confirmed septic patients. Follow-up samples should be tested once every 1-2 days based upon physician discretion taking into account the patient? s evolution and progress. Consider discontinuation of ??antibiotic therapy ??if the PCT current ??is <= 0.5 ng/mL or if the delta PCT is > 80%. ??Duration of antibiotics should not be determined solely on PCT; established guidelines for the indication should be followed. ? PCT peak: ??Highest observed PCT concentration ? PCT current: Most recent PCT concentration ? Calculate delta PCT using the following equation: ?Delta PCT ??= ?? PCT Peak ? PCT current ??X 100% ? PCT Peak The Change in Procalcitonin Calculator is available at [email or web address] ?? If clinical picture has not improved and PCT remains high, reevaluate and consider treatment failure or other causes. Sotero Manley MD LAB - CHEMISTRY AYANA DOE Performing Organization Address [facility] de Phone Number [address] [phone] * PHOSPHORUS BLOOD (06/27/2018 4:10 AM CDT) Only the most recent of4 resultswithin the time period is included. Phosphorus 3.2 2.3 - 4.7 mg/dL 06/27/2018 4:46 AM CDT [facility] Blood BLOOD SPECIMEN / Unknown Lab Venipuncture / Unknown 06/27/2018 4:10 AM CDT 06/27/2018 4:19 AM CDT Jennyfer Orozco MD LAB - CHEMISTRY AYANA DOE Performing Organization Address [facility] [place] [address], [facility] [phone] * MAGNESIUM BLOOD (06/27/2018 4:10 AM CDT) Only the most recent of4 resultswithin the time period is included. Magnesium 1.9 1.6 - 2.6 mg/dL 06/27/2018 4:46 AM CDT [facility] Blood BLOOD SPECIMEN / Unknown Lab Venipuncture / Unknown 06/27/2018 4:10 AM CDT 06/27/2018 4:19 AM CDT Jennyfer Orozco MD LAB - CHEMISTRY AYANA DOE Performing Organization Address City/[facility]/ZIP Co de Phone Number [address] [phone] * VANCOMYCIN LEVEL TROUGH (06/26/2018 9:50 AM CDT) Only the most recent of2 resultswithin the time period is included. Vancomycin Trough 15.5 10.0 - 20.0 mcg/mL 06/26/2018 11:12 AM CDT [facility] Blood BLOOD SPECIMEN / Unknown Lab Venipuncture / Unknown 06/26/2018 9:50 AM CDT 06/26/2018 9:57 AM CDT Judah Calles MD LAB - CHEMISTRY AYANA DOE Performing Organization Address [facility]/ZIP Co de Phone Number [address] [phone] * LACTIC ACID BLOOD (06/24/2018 2:24 PM CDT) Only the most recent of7 resultswithin the time period is included. Lactic Acid-Stat 1.9 0.5 - 2.2 mmol/L 06/24/2018 3:28 PM CDT [facility] Blood BLOOD SPECIMEN / Unknown Lab Venipuncture / Unknown 06/24/2018 2:24 PM CDT 06/24/2018 2:32 PM CDT Sotero Manley MD LAB - CHEMISTRY AYANA DOE [address] [phone] * ECHO COMPLETE (06/24/2018 8:32 AM CDT) Only the most recent of2 resultswithin the time period is included. Anatomical Region Laterality Modality Color Flow Doppl er 06/24/2018 7:43 AM CDT Narrative Procedure Note Jose L Rodriguez MD - 06/24/2018 Jennyfer Orozco MD ECHOCARDIOGRAPHY RAD IANT * TSH (06/23/2018 3:47 PM CDT) Only the most recent of2 resultswithin the time period is included. [facility] TSH 2.739 0.350 - 4.940 uIU/mL 06/23/2018 4:33 PM CDT [facility] Blood BLOOD SPECIMEN / Unknown Lab Venipuncture / Unknown 06/23/2018 3:47 PM CDT 06/23/2018 3:51 PM CDT Sotero Manley MD LAB - CHEMISTRY AYNAA DOE [facility] Organization Address City/State/ZIP Co de Phone Number [address] [phone] * D-DIMER (06/23/2018 3:45 PM CDT) [facility] D-Dimer Quantitative 0.46 <=0.50 mcg/mL FEU 06/23/2018 4:10 PM CDT [facility] Comment: In the absence of clinical symptoms, a value less than or equal to 0.5 mcg/mL FEU significantly decreases the probability of PE/DVT (negative predictive value >95%). 1 mcg/mL FEU = 1 Fibrinogen Equivalent Unit (approximates 0.5 mcg/ml of D- Dimer). ?ISTH DIAGNOSTIC SCORING SYSTEM FOR DIC ?Score ?0 ? 1 ? 2 ?3 ?? Platelet Count(x10^3/uL) ?> 100 ?? < 100 ?? < 50 ?N/A PT Prolongation above ? upper limit of normal ?0-3 ? 3-6 ? > 6 ?N/A range (seconds) ? Fibrinogen (mg/dL) ?> 100 ?? < 100 ?N/A ?N/A D-Dimer (mcg/mL FEU) ? < 0.50 ?N/A ? 0.50-5.0 ??> 5 Calculate Cumulative Score: > or = 5 :compatible with overt DIC ? < 5 :suggestive for non-overt DIC N/A = Non applicable Reference: Br. J. Haematol. 145:24-33,2009. Blood BLOOD SPECIMEN / Unknown Lab Venipuncture / Unknown 06/23/2018 3:45 PM CDT 06/23/2018 3:51 PM CDT Sotero Manley MD LAB - COAGULATION OR DERABLES Performing Organization Address [facility] Co de Phone Number [address] [phone] * INFLUENZA A+B PCR (06/23/2018 9:49 AM CDT) Influenza A Rapid JEANNE Negative Negative 06/23/2018 10:18 AM CDT [facility] Influenza B JEANNE Rapid Negative Negative 06/23/2018 10:18 AM CDT [facility] Microbiology SPECIMEN FROM NASOPHARYNGEAL STRUCTURE / Unknown Collection / Unknown 06/23/2018 9:49 AM CDT 06/23/2018 9:53 AM CDT Narrative [facility] - 06/23/2018 10:18 AM CDT Assay performed by Nucleic Acid Amplification. Results do not exclude the possibility of a mixed viral infection. NOTE: ??Detecting and identifying specific viral nucleic acids from individuals exhibiting signs and symptoms of respiratory infection aids in the diagnosis of respiratory infection, if used in conjunction with other clinical and laboratory findings. The results of this test should not be used as the sole basis for diagnosis, treatment, or patient management decisions. Neel Senior MD LAB - MICROBIOLOGY O RDERABLES [facility] [address] [phone] * MRI BRAIN NON CONTRAST (06/23/2018 9:01 AM CDT) Only the most recent of2 resultswithin the time period is included. Anatomical Region Laterality Modality Head Magnetic Resonan ce 06/23/2018 9:11 AM CDT Impressions 06/23/2018 10:45 AM CDT IMPRESSION: 1.No evidence of acute cerebral infarction. 2.Nonspecific T2/FLAIR hyperintensity in the right centrum semiovale which may represent sequela of small vessel ischemic disease or remote lacunar infarct. Dictated by Ana Key MD (assistant vice president). This report was approved ??by Ana Key ?? on 06/23/2018 9:36 AM . I, Dr. MIKE GUERRA have personally reviewed and interpreted this examination/study. This report was electronically signed by MIKE GUERRA ??on 06/23/2018 10:45 AM . Narrative 06/23/2018 10:45 AM CDT EXAMINATION: Magnetic resonance imaging (MRI) of the brain without contrast HISTORY: STROKE/TIA TECHNIQUE: MRI of the brain was performed without contrast according to standard protocol. FINDINGS: Comparison is made with concurrent CT head and prior MRI brain dated on 10/13/2017. Redemonstrated a 2 mm focus of susceptibility artifact in the left putamen, likely representing chronic microhemorrhage or mineralization. No evidence of acute hemorrhage is identified. No evidence of acute cerebral infarction is seen. There is mild cerebral volume loss with associated ex vacuo ventricular dilatation. No mass effect or midline shift is seen. Mild periventricular white matter FLAIR hyperintensities are nonspecific, but can be seen in the setting of chronic small vessel ischemic disease. Similar findings noted in the medial left cerebellar hemisphere. Redemonstrated a FLAIR/T2 hyperintensity in the right centrum semiovale (image 17 series 4) which is nonspecific and remains unchanged since prior exam. The corpus callosum and sella appear normal. The posterior fossa, brainstem, and craniocervical junction appear normal. There is a small retention cyst in the right maxillary sinus otherwise the visualized portions of the orbits, paranasal sinuses, and mastoids appear normal. There are atherosclerotic calcification of the carotid siphons and V4 segments of the vertebral arteries, better seen on concurrent head CT, with preserved flow voids. The calvarium and visualized cervical spine appear normal. Procedure Note Mike Guerra MD - 06/23/2018 EXAMINATION: Magnetic resonance imaging (MRI) of the brain withoutcontrast HISTORY: STROKE/TIA TECHNIQUE: MRI of the brain was performed without contrast according to standard protocol. FINDINGS: Comparison is made with concurrent CT head and prior MRI brain dated on 10/13/2017. Redemonstrated a 2 mm focus of susceptibility artifact in the left putamen, likely representing chronic microhemorrhage or mineralization.No evidence of acute hemorrhage is identified. No evidence of acutecerebral infarction is seen. There is mild cerebral volume loss with associatedex vacuo ventricular dilatation. No mass effect or midline shift is seen. Mild periventricular white matter FLAIR hyperintensities arenonspecific, but can be seen in the setting of chronic small vessel ischemic disease. Similar findings noted in the medial left cerebellar hemisphere. Redemonstrated a FLAIR/T2 hyperintensity in the right centrum semiovale (image 17 series 4) which is nonspecific and remains unchanged sinceprior exam. The corpus callosum and sella appear normal. The posterior fossa, brainstem, and craniocervical junction appear normal. There is a small retention cyst in the right maxillary sinus otherwisethe visualized portions of the orbits, paranasal sinuses, and mastoidsappear normal. There are atherosclerotic calcification of the carotid siphonsand V4 segments of the vertebral arteries, better seen on concurrent headCT, with preserved flow voids. The calvarium and visualized cervical spine appear normal. IMPRESSION: 1.No evidence of acute cerebral infarction. 2.Nonspecific T2/FLAIR hyperintensity in the right centrum semiovalewhich may represent sequela of small vessel ischemic disease or remote lacunar infarct. Dictated by Ana Key MD (assistant vice president). This report was approved by Ana Key on 06/23/2018 9:36 AM . IDr. MIKE have personally reviewed and interpreted this examination/study. This report was electronically signed by MIKE GUERRA on06/23/2018 10:45 AM . Jennyfer Orozco MD MR ORDERABLES * (ABNORMAL) URINALYSIS REFLEX TO MICROSCOPIC NO CULTURE (06/23/2018 6:45 AM [facility]) Only the most recent of3 resultswithin the time period is included. Color UA Yellow Straw, Yellow, Colorless 06/23/2018 7:00 AM [facility] Clarity UA Clear Clear, Slt Cloudy 06/23/2018 7:00 AM [facility] Specific [place] UA 1.043(H) 1.005 - 1.030 06/23/2018 7:00 AM [facility] pH UA 5.0 5.0 - 8.0 pH 06/23/2018 7:00 AM [facility] Protein UA 2+(A) Negative mg/dL 06/23/2018 7:00 AM [facility] Glucose UA 3+(A) Negative mg/dL 06/23/2018 7:00 AM [facility] Ketone UA Trace(A) Negative mg/dL 06/23/2018 7:00 AM [facility] Bilirubin UA Negative Negative mg/dL 06/23/2018 7:00 AM [facility] Blood UA 2+(A) Negative 06/23/2018 7:00 AM [facility] Nitrite UA Negative Negative 06/23/2018 7:00 AM [facility] Leukocyte Esterase Negative Negative 06/23/2018 7:00 AM [facility] Urobilinogen UA Negative Negative mg/dL 06/23/2018 7:00 AM [facility] RBC UA 0-2 None Seen, 0-2, 3-5 /HPF 06/23/2018 7:00 AM [facility] WBC UA 0-5 None Seen, 0-5 /HPF 06/23/2018 7:00 AM [facility] Bacteria UA Trace None, Trace /HPF 06/23/2018 7:00 AM [facility] Squamous Epithelial Cells UA None Seen None Seen, 0-2 /HPF 06/23/2018 7:00 AM [facility] Mucus UA 1+ None, 1+ /LPF 06/23/2018 7:00 AM [facility] Urine URINE SPECIMEN OBTAINED BY SINGLE CATHETERIZATION OF URINARY BLADDER / Unknown Collection / Unknown 06/23/2018 6:45 AM CDT 06/23/2018 6:[address] [facility] - 06/23/2018 7:00 AM CD Specific gravity results confirmed by refractometer. Ramy Durham MD LAB - URINALYSIS ORD ERABLES [facility] [address] [place] [address] * DRUG SCREEN TOX URINE PANEL (06/23/2018 6:23 AM CDT) Pathologist [facility] Amphetamines Screen Urine Negative Negative: < 1000 ng/mL 06/24/2018 1:11 AM [facility] Barbiturates Screen Urine Negative Negative: < 200 ng/mL 06/24/2018 1:11 AM [facility] Benzodiazepine Screen Urine Negative Negative: < 200 ng/mL 06/24/2018 1:11 AM [facility] Opiates Urine Negative Negative: < 300 ng/mL 06/24/2018 1:11 AM [facility] Cocaine Metabolites Urine Negative Negative: < 300 ng/mL 06/24/2018 1:11 AM [facility] Phencyclidine Screen Urine Negative Negative: < 25 ng/ml 06/24/2018 1:11 AM [facility] Cannabinoids Screen Urine Negative Negative: <50 ng/mL 06/24/2018 1:11 AM [facility] Methadone Screen Urine Negative Negative: < 300 ng/mL 06/24/2018 1:11 AM [facility] Urine URINE / Unknown Collection / Unknown 06/23/2018 6:23 AM CDT 06/24/2018 12:[address] [facility] - 06/24/2018 1:11 AM [facility] The Urine Toxicology Screening Panel does not screen for Propoxyphene, Meprobamate, Carisoprodol, Trazodone, [id number] medications and/or volatiles (Acetone, Isopropanol, Methanol or Ethylene Glycol). Ethanol, Salicylate, Acetaminophen, Tricyclic Antidepressants and several therapeutic drugs may be individually assayed in serum or plasma specimen. Toxicology testing by the [facility] is an aid to medical diagnosis and treatment of patients. No documented chain of custody was maintained. Results are intended to be used for clinical purposes only. ? Sotero Manley MD LAB - URINE CHEMISTR Y ORDERABLES Performing Organization Address City/State/[facility] Co de Phone Number [address] [phone] * XR CHEST 1VW PORTABLE (06/23/2018 4:54 AM CDT) Only the most recent of2 resultswithin the time period is included. Anatomical Region Laterality Modality Chest Radiographic Lizz ging 06/23/2018 5:09 AM CDT Impressions 06/23/2018 12:29 PM CDT IMPRESSION: 1.No acute pulmonary process. Report dictated by Brandt Thomas M.D. (assistant vice president). I, Dr. EVERETT PRECIADO have personally reviewed and interpreted this examination/study. This report was electronically signed by EVERETT PRECIADO ??on 06/23/2018 12:29 PM . Narrative 06/23/2018 12:29 PM CDT EXAMINATION: XR CHEST 1VW PORTABLE, 06/23/2018 4:54 AM HISTORY: concern for infection COMPARISON: 10/10/2017 FINDINGS: The lung volumes are small causing pulmonary vascular crowding. There is no focal consolidation, pleural effusion, or pneumothorax. The cardiac silhouette is normal. The mediastinal silhouette is normal. The visible bony thorax is intact. Procedure Note Everett Preciado DO - 06/23/2018 EXAMINATION: XR CHEST 1VW PORTABLE, 06/23/2018 4:54 AM HISTORY: concern for infection COMPARISON: 10/10/2017 FINDINGS: The lung volumes are small causing pulmonary vascular crowding. There is no focal consolidation, pleural effusion, or pneumothorax. The cardiac silhouette is normal. The mediastinal silhouette is normal. The visible bony thorax is intact. IMPRESSION: 1.No acute pulmonary process. Report dictated by Brandt Thomas M.D. (assistant vice president). I, Dr. EVERETT PRECIADO have personally reviewed and interpreted this examination/study. This report was electronically signed by EVERETT PRECIADO on 06/23/2018 12:29 PM . Ramy Durham MD DIAGNOSTIC IMAGING O RDERABLES * CULTURE BLOOD (06/23/2018 4:53 AM CDT) Only the most recent of4 resultswithin the time period is included. Culture No growth day 5 LEILA 06/28/2018 8:30 AM CDT [facility] Blood PERIPHERAL BLOOD / Unknown Venipuncture / Unknown 06/23/2018 4:53 AM CDT 06/23/2018 5:04 AM CDT Ramy Durham MD LAB - MICROBIOLOGY O RDERABLES [facility] [address] [place] [address], [facility] [phone] * (ABNORMAL) BLOOD GASES NIKOS (06/23/2018 4:40 AM CDT) pH Mixed Venous 7.40 7.30 - 7.40 06/23/2018 4:47 AM CDT [facility] pCO2 Mixed Venous 44 40 - 46 mmHg 06/23/2018 4:47 AM CDT [facility] pO2 Mixed Venous 23(L) 35 - 42 mmHg 06/23/2018 4:47 AM CDT [facility] HCO3 Mixed Venous 26.7(H) 22.0 - 26.0 mmol/L 06/23/2018 4:47 AM [facility] TCO2 Mixed Venous 28.1 25.0 - 29.0 mmol/L 06/23/2018 4:47 AM [facility] Base Excess Venous 1.5 -2.0 - 2.0 mmol/L 06/23/2018 4:47 AM [facility] Hemoglobin Mixed Venous 15.7 13.5 - 17.5 g/dL 06/23/2018 4:47 AM [facility] Oxyhemoglobin Mixed Venous 46.7(L) 66.0 - 77.0 % 06/23/2018 4:47 AM [facility] Carboxyhemoglobin Venous 1.2 0.0 - 3.0 % 06/23/2018 4:47 AM [facility] Methemoglobin 0.1 0.0 - 2.0 % 06/23/2018 4:47 AM [facility] FI O2 Mixed Venous 21.0 % 2018 4:47 AM [facility] Blood BLOOD SPECIMEN / Unknown Venipuncture / Unknown 06/23/2018 4:40 AM CDT 06/23/2018 4:44 AM CDT Ramy Durham MD LAB - BLOOD GASES OR DERABLES [address] [phone] * (ABNORMAL) COMPREHENSIVE METABOLIC PANEL (06/23/2018 4:39 AM CDT) Only the most recent of3 resultswithin the time period is included. BUN 11 7 - 26 mg/dL 06/23/2018 5:10 AM [facility] Creatinine 0.9 0.6 - 1.2 mg/dL 06/23/2018 5:10 AM [facility] Sodium 132(L) 136 - 145 mmol/L 06/23/2018 5:10 AM [facility] Potassium 4.4 3.5 - 4.5 mmol/L 06/23/2018 5:10 AM [facility] Comment: Hemolysis detected in this specimen. Hemolysis is known to cause elevations in this analyte. Caution should be exercised in the interpretation of this result. Recommend repeat testing if clinically indicated. Chloride 95(L) 98 - 107 mmol/L 06/23/2018 5:10 AM [facility] CO2 25 22 - 29 mmol/L 06/23/2018 5:10 AM [facility] Glucose 258(H) 70 - 115 mg/dL 06/23/2018 5:10 AM [facility] Calcium 9.7 8.4 - 10.2 mg/dL 06/23/2018 5:10 AM [facility] Protein Total 8.7(H) 6.0 - 8.3 g/dL 06/23/2018 5:10 AM [facility] Comment:Hemolysis detected i n this specimen. Hemolysis is known to cause elevations in this analyte. Caution should be exercised in the interpretation of this result. Recommend repeat testing if clinically indicated. Albumin 4.1 3.4 - 5.0 g/dL 06/23/2018 5:10 AM [facility] Bilirubin Total 1.1 0.2 - 1.2 mg/dL 06/23/2018 5:10 AM [facility] Alkaline Phosphatase 72 40 - 150 Units/L 06/23/2018 5:10 AM [facility] ALT 33 0 - 55 Units/L 06/23/2018 5:10 AM [facility] AST 31 5 - 34 Units/L 06/23/2018 5:10 AM [facility] Comment: Hemolysis detected in this specimen. Hemolysis is known to cause elevations in this analyte. Caution should be exercised in the interpretation of this result. Recommend repeat testing if clinically indicated. Anion Gap 16 8 - 18 06/23/2018 5:10 AM [facility] BUN/Creatinine Ratio 12 7 - 23 06/23/2018 5:10 AM [facility] Osmolality Calculated 282 270 - 300 mOsm/kg 06/23/2018 5:10 AM [facility] Albumin/Globulin Ratio 0.9(L) 1.1 - 2.3 06/23/2018 5:10 AM [facility] eGFR >60 >60 mL/min/1. 73 m2 06/23/2018 5:10 AM [facility] Blood BLOOD SPECIMEN / Unknown Venipuncture / Unknown 06/23/2018 4:39 AM CDT 06/23/2018 4:44 AM CDT Ramy Durham MD LAB - CHEMISTRY AYANA DOE [address] [phone] * CK BLOOD (06/23/2018 4:39 AM CDT) [facility] CK Total 63 30 - 200 Units/L 06/23/2018 5:06 AM CDT [facility] Blood BLOOD SPECIMEN / Unknown Venipuncture / Unknown 06/23/2018 4:39 AM CDT 06/23/2018 4:44 AM CDT Ramy Durham MD LAB - CHEMISTRY AYANA DOE Performing Organization Address [facility] Co de Phone Number [address] [phone] * EKG 12-LEAD (06/23/2018 3:11 AM CDT) Only the most recent of2 resultswithin the time period is included. [facility] Ventricular Rate 125 BPM SL MUSE Atrial Rate 125 BPM [facility] P-R Interval 150 ms [facility] QRS Duration ms 94 ms [facility] Q-T Interval ms 310 ms [facility] QTC Calculation (Bezet) 447 ms [facility] Calculated P [place] 55 degrees SL MUSE Calculated R [place] 64 degrees [facility] Calculated T [place] -2 degrees [facility] Interpretation EKG SINUS TACHYCARDIA POSSIBLE INFERIOR INFARCT (CITED ON OR BEFORE 10-OCT-2017) ABNORMAL ECG WHEN COMPARED WITH ECG OF 10-OCT-2017 22:00, PREMATURE ATRIAL COMPLEXES ARE NO LONGER PRESENT NONSPECIFIC T WAVE ABNORMALITY NOW EVIDENT IN LATERAL LEADS NONSPECIFIC ST-T SEGMENT CHANGES Confirmed by Sofiya VASQUEZ, BUSTER ([id number]), editor city Rebeca Vaz ([id number]) on 08/11/2018 10:34:29 PM [facility] 06/23/2018 3:11 AM CDT 08/11/2018 10:34 PM CDT Arsenio Levy MD ECG ORDERABLES [facility] * RETYPE PATIENT (06/23/2018 3:08 AM CDT) ABO 06/23/2018 4:30 AM CDT [facility] Rh Type 06/23/2018 4:30 AM CDT [facility] Typem 06/23/2018 4:30 AM CDT [facility] Interpretation 06/23/2018 4:30 AM CDT [facility] Blood BLOOD SPECIMEN / Unknown 06/23/2018 3:08 AM CDT 06/23/2018 3:14 AM CDT Narrative [facility] - 06/23/2018 4:30 AM CDT Re-type confirmed per [facility] Blood Bank policies & procedures. Results documented in department. Arsenio Levy MD LAB - BLOOD BANK ORD ERABLES Performing Organization Address City/[facility] Co de Phone Number [facility] [address] * TYPE + SCREEN PANEL (06/23/2018 2:52 AM CDT) Antibody Screen NEG 9 3:45 AM CDT [facility] ABO Rh O POS 06/23/2018 3:45 AM CDT [facility] Blood Bank BLOOD SPECIMEN / Unknown 06/23/2018 2:52 AM CDT 06/23/2018 2:53 AM CDT Arsenio Levy MD LAB - BLOOD BANK ORD ERABLES [facility] [address] * CT BRAIN STROKE (06/23/2018 2:50 AM CDT) Anatomical Region Laterality Modality Head Computed Tomogra phy 06/23/2018 8:24 AM CDT Impressions 06/23/2018 8:40 AM CDT IMPRESSION: No acute intracranial CT abnormality. CTA demonstrates atherosclerosis of both vertebral V4 segments, causing focal intermediate grade stenosis of right vertebral V4 segment, and multiple stenoses including high-grade stenoses of left vertebral V4 segment. This appears similar to prior scan. 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 CTA demonstrates atherosclerosis of bilateral ICA cavernous/supraclinoid segments, causing focal low to intermediate grade stenosis of right ICA cavernous segment, and focal intermediate grade stenosis of left ICA cavernous segment. This appears similar to prior scan. This report was electronically signed by ALESHIA STERLING ??on 06/23/2018 8:40 AM . Narrative 06/23/2018 8:40 AM CDT EXAMINATION: 1. CT of the head without contrast 2. CT angiography of the head and neck with contrast HISTORY: Code Stroke TECHNIQUE: CT of the head was performed without contrast according to standard protocol. Then CT angiography of the head and neck was obtained after the uneventful administration of 100 mL Isovue-370 intravenous contrast. Three dimensional postprocessing was performed by the technologist and sent to the workstation for review. COMPARISON: CTA head 10/10/2017 FINDINGS: Noncontrast CT head: No intracranial hemorrhage or extra-axial fluid collection. Carreon-white matter differentiation is preserved. Calcified plaque of the intracranial ICAs and vertebrals. No mass, mass effect, or midline shift. No change in normal ventricle size, shape, and configuration. The bony calvarium appears unremarkable. Mucous retention cyst in right maxillary antrum. CTA HEAD: In right anterior circulation, ICA cavernous and supraclinoid segments have large burden of calcified plaque, with focal low to intermediate grade stenosis in region of cavernous segment anterior turn. MCA and [place] appear unremarkable. In the left anterior circulation, ICA cavernous segment has large burden of calcified plaque, with focal intermediate grade stenosis at distal cavernous segment level.. MCA and [place] appear unremarkable. In the posterior circulation, proximal third of right vertebral V4 segment, distal to right PICA origin, has calcified plaque causing focal intermediate grade stenosis. Left vertebral V4 segment has large burden of calcified plaque, causing variable degree ( including high-grade) stenoses. Proximal basilar artery has wide neck aneurysm pointing leftward and anteriorly, with combined measurement of basilar artery lumen and white neck aneurysm measuring about 5 x 3 mm (unchanged). day haul or farm charter bus driver appear unremarkable. CTA NECK: Imaged aortic arch as minimal calcified plaque. Proximal great vessels appear unremarkable. In bilateral anterior circulation, carotid bifurcation and proximal cervical ICA have atherosclerosis (larger soft plaque and small calcified plaque components), with no significant measurable stenosis using NASCET calculation. In the posterior circulation, right vertebral is slightly dominant. Calcified plaque near right vertebral origin does not cause significant stenosis. Extracranial left vertebral is unremarkable.. Procedure Note Aleshia Sterling MD - 06/23/2018 EXAMINATION: 1. CT of the head without contrast 2. CT angiography of the head and neck with contrast HISTORY: Code Stroke TECHNIQUE: CT of the head was performed without contrast according to standard protocol. Then CT angiography of the head and neck was obtained after the uneventful administration of 100 mL Isovue-370 intravenous contrast. Three dimensional postprocessing was performed by the technologist and sent to the workstation for review. COMPARISON: CTA head 10/10/2017 FINDINGS: Noncontrast CT head: No intracranial hemorrhage or extra-axial fluid collection. Carreon-white matter differentiation is preserved. Calcified plaque of the intracranial ICAs and vertebrals. No mass, mass effect, or midline shift. No change in normal ventricle size, shape, and configuration. The bony calvarium appears unremarkable. Mucous retention cyst in right maxillary antrum. CTA HEAD: In right anterior circulation, ICA cavernous and supraclinoid segments have large burden of calcified plaque, with focal low to intermediate grade stenosis in region of cavernous segment anterior turn. MCA and [place] appear unremarkable. In the left anterior circulation, ICA cavernous segment has large burden of calcified plaque, with focal intermediate grade stenosis at distal cavernous segment level.. MCA and [place] appear unremarkable. In the posterior circulation, proximal third of right vertebral V4 segment, distal to right PICA origin, has calcified plaque causing focal intermediate grade stenosis. Left vertebral V4 segment has large burdenof calcified plaque, causing variable degree ( including high-grade) stenoses. Proximal basilar artery has wide neck aneurysm pointingleftward and anteriorly, with combined measurement of basilar artery lumen and white neck aneurysm measuring about 5 x 3 mm (unchanged). day haul or farm charter bus driver appear unremarkable. CTA NECK: Imaged aortic arch as minimal calcified plaque. Proximal great vessels appear unremarkable. In bilateral anterior circulation, carotid bifurcation and proximal cervical ICA have atherosclerosis (larger soft plaque and smallcalcified plaque components), with no significant measurable stenosis using NASCET calculation. In the posterior circulation, right vertebral is slightly dominant. Calcified plaque near right vertebral origin does not cause significant stenosis. Extracranial left vertebral is unremarkable.. IMPRESSION: No acute intracranial CT abnormality. CTA demonstrates atherosclerosis of both vertebral V4 segments, causing focal intermediate grade stenosis of right vertebral V4 segment, and multiple stenoses including high-grade stenoses of left vertebral V4 segment. This appears similar to prior scan. 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 CTA demonstrates atherosclerosis of bilateral ICA cavernous/supraclinoid segments, causing focal low to intermediate grade stenosis of right ICA cavernous segment, and focal intermediate grade stenosis of left ICA cavernous segment. This appears similar to prior scan. This report was electronically signed by ALESHIA STERLING on 06/23/2018 8:40AM . Arsenio Levy MD CT ORDERABLES * (ABNORMAL) CBC W AUTO DIFFERENTIAL (06/23/2018 2:50 AM CDT) Only the most recent of3 resultswithin the time period is included. WBC 14.7(H) 3.5 - 10.5 10? 3 /uL 06/23/2018 2:[address] [facility] RBC 5.35 4.30 - 5.70 10? 6 /uL 06/23/2018 2:54 AM [facility] Hemoglobin 16.2 13.5 - 17.5 g/dL 06/23/2018 2:54 AM [facility] Hematocrit 45.9 39.0 - 50.0 % 06/23/2018 2:54 AM [facility] MCV 85.8 81.0 - 97.0 fL 06/23/2018 2:[address] [facility] MCH 30.3 28.0 - 34.0 pg 06/23/2018 2:[address] [facility] MCHC 35.3 32.0 - 36.0 g/dL 06/23/2018 2:54 AM [facility] Platelet Count 203 150 - 400 10? 3 /uL 06/23/2018 2:54 AM [facility] RDW-SD 39.8 36.0 - 50.0 fL 06/23/2018 2:54 AM [facility] RDW-CV 12.9 11.2 - 14.8 % 06/23/2018 2:54 AM [facility] MPV 8.7(L) 9.3 - 12.8 fL 06/23/2018 2:54 AM [facility] nRBC Absolute 0.00 0 10? 3 /uL 06/23/2018 2:54 AM [facility] nRBC Auto 0.0 0 /100 WBC 06/23/2018 2:54 AM [facility] Neutrophils % 90.8(H) 35.0 - 70.0 % 06/23/2018 2:54 AM [facility] Lymphocytes % 2.9(L) 19.7 - 55.1 % 06/23/2018 2:54 AM [facility] Monocytes % 5.6 3.0 - 15.0 % 06/23/2018 2:54 AM [facility] Eosinophils % 0.0 0.0 - 6.0 % 06/23/2018 2:54 AM [facility] Basophil % 0.2 0.0 - 1.5 % 06/23/2018 2:54 AM [facility] Neutrophils Absolute 13.4(H) 1.6 - 7.0 10? 3 /uL 06/23/2018 2:54 AM [facility] Lymphocyte Absolute 0.4(L) 0.8 - 2.9 10? 3 /uL 06/23/2018 2:54 AM [facility] Monocytes Absolute 0.82(H) 0.14 - 0.66 10? 3 /uL 06/23/2018 2:54 AM [facility] Eosinophils Absolute 0.00 0.00 - 0.45 10? 3 /uL 06/23/2018 2:54 AM [facility] Basophils Absolute 0.03 0.00 - 0.06 10? 3 /uL 06/23/2018 2:54 AM [facility] Immature Granulocytes % 0.5 0.0 - 1.0 % 06/23/2018 2:54 AM [facility] Blood BLOOD SPECIMEN / Unknown Venipuncture / Unknown 06/23/2018 2:50 AM CDT 06/23/2018 2:50 AM T Arsenio Levy MD LAB - HEMATOLOGY ORD ERABLES Performing Organization Address City/[facility]/ZIP Co de Phone Number [facility] [address] [place] [address], [facility] [phone] * CREATININE BLOOD - POCT () [facility] (06/23/2018 2:43 AM CDT) Pathologist [facility] Creatinine POCT 1.30 0.3 - 1.3 mg/dL [facility] eGFR POCT 60 60 ml/min [facility] Blood BLOOD SPECIMEN / Unknown 06/23/2018 2:43 AM CDT Arsenio Levy MD LAB - POINT OF CARE ORDERABLES Performing Organization Address [facility] Co de Phone Number [facility] [address] [phone] * CARDIAC PROCEDURE ORDER (12/13/2017 3:33 PM CDT) Narrative 12/13/2017 3:33 PM CDT Ordered by an unspecified provider. Scanned Document CARDIAC SERVICES ORD ERABLES * VAS LEFT VENOUS DUPLEX LE (10/14/2017 8:59 AM CDT) Anatomical Region Laterality Modality Lower Extremity, Upper Extremity Duplex Doppler 10/14/2017 8:46 AM CDT Narrative Procedure Note Toan Polanco MD - 10/14/2017 Domi Hutton MD VASCULAR LAB ORDTea DOE * ACETYLCHOLINE RECEPTOR MODULATING ANTIBODY (10/13/2017 5:29 AM CDT) Pathologist [facility] Acetylcholine Modulating Antibody <12 0 - 20 % 10/20/2017 10:06 AM CDT [facility] ([facility]) Comment: ?Negative: ?<21 ?Equivocal: ? 21 - 25 ?Positive: ?>25 The assay is linear between values of 12 and 64. Those <12 and >64 are reported as such. ??No single value for ACR-modulating antibody should be used as a sole basis for diagnosis or response to therapy. Blood BLOOD SPECIMEN / Unknown Lab Venipuncture / Unknown 10/13/2017 5:29 AM CDT 10/13/2017 5:48 AM CDT [facility]ative [facility] - 10/20/2017 10:06 AM CDT Performed at: ??01 - [address] ??[id number] Funeral Director And Embalmer: Kevin Dave MD, Phone: ??[phone] Emmett Cota MD LAB - SEROLOGY O RDERABLES Performing Organization Address City/State/[facility] Co de Phone Number [facility] ([facility]) [address] [place] [address] * ACETYLCHOLINE RECEPTOR BLOCKING ANTIBODY (10/13/2017 5:29 AM CDT) Acetylcholine Blocking Antibody 7 0 - 25 % 10/16/2017 1:11 PM CDT [facility] ([facility]) Comment: ? Negative: ?0 - 25 ? Borderline: ?? 26 - 30 ? Positive: ? >30 Results for this test are for research purposes only by the assay's oyster opener. ??The performance characteristics of this product have not been established. ??Results should not be used as a diagnostic procedure without confirmation of the diagnosis by another medically established diagnostic product or procedure. Blood BLOOD SPECIMEN / Unknown Lab Venipuncture / Unknown 10/13/2017 5:29 AM CDT 10/13/2017 5:48 AM CDT Narrative [facility] ([facility]) - 10/16/2017 1:11 PM CDT Performed at: ??01 - [facility] [address] ??[id number] Funeral Director And Embalmer: Kevin Dave MD, Phone: ??[phone] Emmett Cota MD LAB - SEROLOGY O [place] Performing Organization Address [facility] de Phone Number [facility] [address] [place] [phone] * ACETYLCHOLINE RECEPTOR BINDING ANTIBODY (10/13/2017 5:29 AM CDT) [facility] Acetylcholine Binding Antibody <0.03 0.00 - 0.24 nmol/L 10/15/2017 4:24 PM CDT [facility] ([facility]) Comment: ? Negative: ?? 0.00 - 0.24 ? Borderline: 0.25 - 0.40 ? Positive: ?> 0.40 Blood BLOOD SPECIMEN / Unknown Lab Venipuncture / Unknown 10/13/2017 5:29 AM CDT 10/13/2017 5:49 AM CDT Narrative [facility] ([facility]) - 10/15/2017 4:24 PM CDT Performed at: ??01 - [address] ??[id number] Funeral Director And Embalmer: Kevin Dave MD, Phone: ??[phone] Emmett Cota MD LAB - SEROLOGY O [place] Performing Organization Address [facility]/ZIP Co de Phone Number [facility] ([facility]) [address] [place] [address] * ELEUTERIO BLOOD SCREEN W/REFLEX TITER (10/13/2017 5:29 AM CDT) ELEUTERIO Negative 10/14/2017 1:10 PM CDT [facility] ([facility]) Comment: ? Negative ?? <1:80 ? Borderline ??1:80 ? Positive ?? >1:80 Blood BLOOD SPECIMEN / Unknown Lab Venipuncture / Unknown 10/13/2017 5:29 AM CDT 10/13/2017 5:48 AM CDT [facility]ative [facility] - 10/14/2017 1:10 PM CDT Performed at: ??01 - [facility] [address] [place], [place] ??[id number] Funeral Director And Embalmer: Nicolas Lomeli PhD, Phone: ??[phone] Emmett Cota MD LAB - CHEMISTRY ORDERABLES [facility] ([facility]) [address] [place] [address], [facility] * CT ANGIO BRAIN (10/10/2017 11:59 PM CDT) Anatomical Region Laterality Modality Head Computed Tomogra phy 10/11/2017 12:1 3 AM CDT Impressions 10/11/2017 1:21 PM CDT IMPRESSION: 1. No acute intracranial hemorrhage. 2. A 3 mm proximal basilar artery aneurysm. 3. Atherosclerotic disease involving the carotid siphons of the internal carotid arteries with 50 percent narrowing of the bilateral supraclinoid internal carotid arteries based on NASCET criteria. 4. Atherosclerotic disease involving the intradural vertebral arteries with up to moderate narrowing based on NASCET criteria. Report dictated by Brandt Thomas MD (assistant vice president). I, Dr. YOAN BAIRD have personally reviewed and interpreted this examination/study. This report was electronically signed by YOAN BAIRD ??on 10/11/2017 1:21 PM . Narrative 10/11/2017 1:21 PM CDT EXAMINATION: Computed tomographic (CT) angiography of the head without and with contrast HISTORY: History of aneurysm, now weakness and blurred vision . COMPARISON: None. TECHNIQUE: CT of the head was performed without contrast according to standard protocol. Then CT angiography of the head was obtained after the uneventful administration of 50 mL Isovue-370 intravenous contrast. 3-D volume rendered and MIP postprocessing was performed by the technologist on a separate work station and images were sent to PACS for review. NON-ANGIOGRAPHIC FINDINGS: No acute intra- or extra-axial hemorrhage or fluid collections are identified. The ventricles are of normal size, shape, and morphology. The brain volume is normal for age. The basilar cisterns are patent. No mass effect or midline shift is seen. The carreon-white matter differentiation is normal. Periventricular white matter hypoattenuation is indicative of chronic small vessel ischemic disease. There is vascular calcification of the carotid siphons and intradural vertebral arteries. The orbital contents, paranasal sinuses, and mastoids appear normal. No acute fracture is identified. ANGIOGRAPHIC FINDINGS: There is atherosclerotic disease involving the distal internal carotid arteries with up to 50 percent narrowing of the bilateral supraclinoid internal carotid arteries. The anterior and middle cerebral arteries appear normal in size. The V3 segments of vertebral arteries are normal. There are atherosclerotic calcifications of intradural vertebral arteries associated with a focal moderate a stenosis based on NASCET criteria, distally. A 3 mm aneurysm is seen in the proximal basilar artery (series 9 image 103) as well as on the MIP and 3-D volume rendered reconstructed images. Bilateral posterior cerebral arteries are normal. Procedure Note Yoan Baird MD - 10/11/2017 EXAMINATION: Computed tomographic (CT) angiography of the head withoutand with contrast HISTORY: History of aneurysm, now weakness and blurred vision . COMPARISON: None. TECHNIQUE: CT of the head was performed without contrast according to standard protocol. Then CT angiography of the head was obtained afterthe uneventful administration of 50 mL Isovue-370 intravenous contrast. 3-D volume rendered and MIP postprocessing was performed by the technologist on a separate work station and images were sent to PACS for review. NON-ANGIOGRAPHIC FINDINGS: No acute intra- or extra-axial hemorrhage or fluid collections are identified. The ventricles are of normal size, shape, and morphology.The brain volume is normal for age. The basilar cisterns are patent. No mass effect or midline shift is seen. The carreon-white matter differentiationis normal. Periventricular white matter hypoattenuation is indicative of chronic small vessel ischemic disease. There is vascular calcificationof the carotid siphons and intradural vertebral arteries. The orbital contents, paranasal sinuses, and mastoids appear normal. No acutefracture is identified. ANGIOGRAPHIC FINDINGS: There is atherosclerotic disease involving the distal internal carotid arteries with up to 50 percent narrowing of the bilateral supraclinoid internal carotid arteries. The anterior and middle cerebral arteries appear normal in size. The V3 segments of vertebral arteries are normal. There are atherosclerotic calcifications of intradural vertebralarteries associated with a focal moderate a stenosis based on NASCET criteria, distally. A 3 mm aneurysm is seen in the proximal basilar artery (series9 image 103) as well as on the MIP and 3-D volume rendered reconstructed images. Bilateral posterior cerebral arteries are normal. IMPRESSION: 1. No acute intracranial hemorrhage. 2. A 3 mm proximal basilar artery aneurysm. 3. Atherosclerotic disease involving the carotid siphons of the internal carotid arteries with 50 percent narrowing of the bilateral supraclinoid internal carotid arteries based on NASCET criteria. 4. Atherosclerotic disease involving the intradural vertebral arteries with up to moderate narrowing based on NASCET criteria. Report dictated by Brandt Thomas MD (assistant vice president). I, Dr. YOAN BAIRD have personally reviewed and interpreted this examination/study. This report was electronically signed by YOAN BAIRD on 10/11/2017 1:21 PM . Rafael Brooke DO CT ORDERABLES * CULTURE URINE (10/10/2017 11:07 PM CDT) Culture Urine No growth (<1,000 CFU/mL) LEILA 10/12/2017 11:17 AM CDT [facility]CRO[facility]OLOG[facility] Urine URINE SPECIMEN OBTAINED BY CLEAN CATCH PROCEDURE / Unknown Collection / Unknown 10/10/2017 11:07 PM CDT 10/10/2017 11:07 PM CDT Rafael Brooke DO LAB - MICROBIOLOG Y ORDERABLES [facility]CROBIOLOG[facility] [address] [place], [address] [phone] Care Teams Coordinate Measuring Equipment Operator Relationship Specialty Start Date End Date Toan Allen MD PCP - General Internal Medicine 10/10/17
--- OUTSIDE RECORDS SUMMARY | 2024-03-17 04:03 | XMS_ITS | Referral Summary ---
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 200 each 2 Active OneTouch Verio test strips stripIndications :Type 2 diabetes mellitus without complication, unspecified whether manager long term care insulin use (HCC) Use to test blood sugar 3 times per day. 2 Active pen needle, diabetic 31 gauge x 3/16 needleIndication s:Type 2 diabetes mellitus without complication, unspecified whether manager long term care insulin use (HCC) Use to inject insulin 4 times per day. 2 Active flash glucose scanning reader (FreeStyle Diamond 2 [place]) misc Use as directed for continuous glucose monitoring. T2DM 1 each 2 Active flash glucose sensor (FreeStyle Diamond 2 Sensor) kit Use as directed for continuous glucose monitoring. T2DM 1 kit 11 2 Active insulin glargine (LANTUS) 100 unit/mL (3 mL) pen for injectionIndicat ions:Type 2 diabetes mellitus without complication, unspecified whether skilled nursing insulin use (HCC) Inject 48 units. Once per day. 15 mL 11 2 Active insulin lispro (HumaLOG, ADMELOG) 100 unit/mL pen for injectionIndicat ions:Type 2 diabetes mellitus without complication, unspecified whether skilled nursing insulin use (HCC) Inject 15 units per [...] pending test results. 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 [employer] Temperature 36.6 ??C (97.8 ??F) 01/16/2022 12:[address] Respiratory Rate 17 08/28/2021 12:50 PM CDT Oxygen Saturation 96% 08/28/2021 12:50 PM CDT Inhaled Oxygen Concentration - - Weight 113.4 kg (250 lb) 01/16/2022 12:58 PM 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 [employer] Height 182.9 cm (6') 01/16/2022 12:58 PM MACHINE [employer] Body Mass Index 33.91 01/16/2022 12:58 PM 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 [employer] Plan of Treatment Not on file Procedures Procedure Name Priority Date/Time Associated Diagnosis Comments POCT HEMOGLOBIN A1C Routine 01/16/2022 1:36 PM MACHINE [employer] Type 2 diabetes mellitus without complication, unspecified whether manager long term care insulin use (HCC) LIPID PANEL Routine 09/07/2021 2:18 PM CDT Moderate mixed hyperlipidemia not requiring statin therapy ALBUMIN CREATININE RATIO, URINE Routine 09/07/2021 2:18 PM CDT Type 2 diabetes mellitus without complication, unspecified whether manager long term care insulin use (HCC) EGFR Routine Gen Lab 07/03/2021 7:55 AM CDT from Last 3 Months or Most Recently Relevant to Health Maintenance Results * (ABNORMAL) POCT hemoglobin A1c (01/16/2022 1:36 PM 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 [employer]) Hemoglobin A1C, POC 7.2 Blood 01/16/2022 1:36 PM MACHINE [employer] Ling Garcia MD PhD POINT OF CARE TEST ORDERABLES Final Result * (ABNORMAL) Albumin Creatinine Ratio, Urine (09/07/2021 2:18 PM CDT) Microalb, Ur 87.8(H) 0.0 - 22.9 mg/L [facility] Random Urine Creatinine 241.9 mg/dL [facility] Microalb/Creat Ratio 36.3(H) 0.0 - 29.9 mg/g [facility] Urine 09/07/2021 2:18 PM CDT 09/07/2021 3:25 PM CDT Talat Gupta MD LAB URINE ORDERABLES Final R esult [facility] * (ABNORMAL) [...] 70 70 - 189 mg/dL [facility] Comment: The Friedewald equation is accurate in most patients when triglycerides are less than 150 mg/dL. ??Consider the use of non-HDL-C or Apo B to help estimate atherosclerotic cardiovascular diesase risk if triglycerides are elevated. Blood specimen (specimen) 09/07/2021 2:18 PM CDT 09/07/2021 3:25 PM CDT Narrative [facility] - 09/07/2021 4:24 PM CDT [...] MD LAB BLOOD ORDERABLES Final R esult [facility] * eGFR (07/03/2021 7:55 AM CDT) eGFR >90 90 - 130 mL/min/1. 73 m2 [facility] Comment: Interpretive Data Reference Interval Normal ?>/= [...] Unknown LAB BLOOD ORDERABLES Final Res ult [facility] Department [place] [address] from Last 3 Months or Most Recently Relevant to Health Maintenance Insurance [facility] Advance Directives For more information, please contact: [phone] * Full Code (Latest Code Status on File) Date Activated Date Inactivated Comments 06/14/2021 2:18 AM 06/20/2021 6:13 PM * Full Code Date Activated Date Inactivated Comments 09/30/2020 12:32 AM 10/01/2020 7:02 PM Care Teams Corporate Operations Compliance Manager Relationship Specialty Start Date End Date Toan Allen MD PCP - General 09/29/20
--- OUTSIDE RECORDS SUMMARY | 2024-03-17 04:03 | XMS_ITS | Data Portability ---
Author Organization [place] [facility], Main Office Address [address] [place] [address] Assessment Encounter Date Assessment Date Assessment LastModified by Organization Details LastModified Time 06/18/2022 06/18/2022 Doctor for blood pressure A1c LDL and lipid discussed blood work has been ordered follow-up in 4 months continue current therapy [email or web address] Not available 07/28/2022 10:34:55 10/09/2022 10/09/2022 Blood work has been reviewed will continue current therapy will follow-up in 4 months. [email or web address] Not available 10/09/2022 21:03:32 11/26/2022 11/26/2022 This note is dictated and transcribed by [employer]. [employer] De[employer] Operator variances may occur. Despite proofreading, typographical errors may occur. Not available 12/11/2022 13:24:02 12/31/2022 12/31/2022 This note is dictated and transcribed by [employer]. [employer] variances may occur. Despite proofreading, typographical errors may occur. Not available 01/01/2023 09:44:25 Plan of Treatment Reminders Order Date Submit Date Provider Last Modified By Organization Details Last Modified Time Details Appointments None recorded. Lab PSA, serum or plasma 2022 023 [facility] (Lab), [address] [place], [address], 09:25:17 HbA1c (hemoglobin A1c), blood 2022 023 [facility] (Lab), [address] [place], [address], 3 09:25:17 albumin/cre atinine, mass ratio, urine 2022 023 [facility] (Lab), [address] [place], [address], 3 09:25:17 CBC w/ auto diff 2022 023 [facility] (Lab), [address] [place], [address], 3 18:00:10 lipid panel, serum 2022 023 [facility] (Lab), [address] [place], [address], 3 11:56:45 CMP, serum or plasma 2022 023 [facility] (Lab), [address] [place], [address], 3 18:48:06 T3, free, serum or plasma 2022 023 [facility] (Lab), [address] [place], [address], 3 19:21:08 T4, free, serum 2022 023 [facility] (Lab), [address] [place], [address], 3 19:22:55 TSH, serum or plasma 2022 023 [facility] (Lab), [address] [place], [address], 3 19:28:55 Referral None recorded. Procedures None recorded. Surgeries None recorded. Imaging None recorded. Medication Orders ketoconazol e 2 % topical cream 2022 023 [facility]/Pharmacy #[id number], [address], [place], [address], 3 15:09:51 terbinafine HCl 250 mg tablet 2022 023 [email or web address]/Pharmacy #[id number], [address], [place], [address], 3 15:31:03 clotrimazol e 1 % topical cream 2022 023 [facility]/Pharmacy #[id number], [address], [place], [address], 3 16:48:47 Patient TargetsNo targets recorded. Patient InstructionsNo instructions recorded. Reason for Referral None Reported. Results Created Date Observation Date Name Description Value Unit Range Abnormal Flag Note LastModifiedBy Organization Detail LastModifiedTime 06/19/1906/18/2022 CBC/C OMPLE TE BLD COUNT W/DIF F white blood cells 6.9 x10'3 /uL 4.2-10 .8 Not Available [facility] (Lab) [address] [place], [address], 06/18/2022 18:00:09 06/19/1906/18/2022 CBC/C OMPLE TE BLD COUNT W/DIF F red blood cells 5.24 x10'6 /uL 4.10-5 .80 Not Available [facility] (Lab) [address] [place], [address], 06/18/2022 18:00:09 06/19/1906/18/2022 CBC/C OMPLE TE BLD COUNT W/DIF F hemoglobin 15.6 g/dL 13.2-1 7.0 Not Available [facility] (Lab) [address] [place], [address], 06/18/2022 18:00:09 06/19/1906/18/2022 CBC/C OMPLE TE BLD COUNT W/DIF F hematocrit 44.9 % 39.3-5 0.0 Not Available [facility] (Lab) [address] [place], [address], 06/18/2022 18:00:09 06/19/19 23 06/18/2022 CBC/C OMPLE TE BLD COUNT W/DIF F mean red cell volume 85.7 fL 80.0-9 7.0 Not Available [facility] (Lab) [address] [place], [address], 06/18/2022 18:00:09 06/19/1906/18/2022 CBC/C OMPLE TE BLD COUNT W/DIF F mean red cell hemoglobin 29.8 pg 27.0-3 3.0 Not Available [facility] (Lab) [address] [place], [address], 06/18/2022 18:00:09 06/19/1906/18/2022 CBC/C OMPLE TE BLD COUNT W/DIF F mean RBC HGB concentratio n 34.7 g/dL 31.0-3 6.0 Not Available [facility] (Lab) [address] [place], [address], 06/18/2022 18:00:09 06/19/1906/18/2022 CBC/C OMPLE TE BLD COUNT W/DIF F red cell distribution width 13.2 % 11.8-1 5.5 Not Available [facility] (Lab) [address] [place], [address], 06/18/2022 18:00:09 06/19/1906/18/2022 CBC/C OMPLE TE BLD COUNT W/DIF F platelets 264 x10'3 /uL 150-40 0 Not Available [facility] (Lab) [address] [place], [address], 06/18/2022 18:00:09 06/19/1906/18/2022 CBC/C OMPLE TE BLD COUNT W/DIF F mean platelet volume 9.0 fL 9.0-12 .4 Not Available [facility] (Lab) [address] [facility] [place], [address], 06/18/2022 18:00:09 06/19/1906/18/2022 CBC/C OMPLE TE BLD COUNT W/DIF F neutrophils 68.2 % 39.0-7 2.0 Not Available [facility] (Lab) [address] [place], [address], 06/18/2022 18:00:06/19/1906/18/2022 CBC/C OMPLE TE BLD COUNT W/DIF F lymphocytes 21.4 % 16.0-4 7.0 Not Available [facility] (Lab) [address] [place], [address], 06/18/2022 18:00:09 06/19/1906/18/2022 CBC/C OMPLE TE BLD COUNT W/DIF F monocytes 8.3 % 5.0-12 .0 Not Available [facility] (Lab) [address] [place], [address], 06/18/2022 18:00:06/19/1906/18/2022 CBC/C OMPLE TE BLD COUNT W/DIF F eosinophils 1.5 % 1.0-7. 0 Not Available [facility] (Lab) [address] [place], [address], 06/18/2022 18:00:06/19/1906/18/2022 CBC/C OMPLE TE BLD COUNT W/DIF F basophils 0.3 % 0.0-2. 0 Not Available [facility] (Lab) [address] [place], [address], 06/18/2022 18:00:09 06/19/19 23 06/18/2022 CBC/C OMPLE TE BLD COUNT W/DIF F immature granulocytes 0.3 % 0.00-0 .50 Not Available [facility] (Lab) [address] [place], [address], 06/18/2022 18:00:09 06/19/19 23 06/18/2022 CBC/C OMPLE TE BLD COUNT W/DIF F neutrophils, absolute count 4.70 x10'3 /uL 1.5-8. 0 Not Available [facility] (Lab) [address] [place], [address], 06/18/2022 18:00:09 06/19/1906/18/2022 CBC/C OMPLE TE BLD COUNT W/DIF F lymphocytes, absolute count 1.47 x10'3 /uL 1.07-3 .43 Not Available [facility] (Lab) [address] [place], [address], 06/18/2022 18:00:09 06/19/1906/18/2022 CBC/C OMPLE TE BLD COUNT W/DIF F monocytes, absolute count 0.57 x10'3 /uL 0.29-0 .99 Not Available [facility] (Lab) [address] [place], [address], 06/18/2022 18:00:09 06/19/1906/18/2022 CBC/C OMPLE TE BLD COUNT W/DIF F eosinophils, absolute count 0.10 x10'3 /uL 0.02-0 .53 Not Available [facility] (Lab) [address] [place], [address], 06/18/2022 18:00:09 06/19/1906/18/2022 CBC/C OMPLE TE BLD COUNT W/DIF F basophils, absolute count 0.02 x10'3 /uL 0.01-0 .08 Not Available [facility] (Lab) [address] [place], [address], 06/18/2022 18:00:09 06/19/19 23 06/18/2022 CBC/C OMPLE TE BLD COUNT W/DIF F immature granulocytes ,absolute 0.02 x10'3 /uL 0.00-0 .05 Not Available [facility] (Lab) [address] [place], [address], 06/18/2022 18:00:09 06/19/19 23 06/18/2022 CBC/C OMPLE TE BLD COUNT W/DIF F nucleated red blood cells 0.0 % -0 Not Available [facility] (Lab) [address] [place], [address], 06/18/2022 18:00:09 06/19/19 23 06/18/2022 CBC/C OMPLE TE BLD COUNT W/DIF F NRBC# 0.00 x10'3 /uL Not Available [facility] (Lab) [address] [place], [address], 06/18/2022 18:00:09 06/19/1906/18/2022 COMPR EHENS AIDA METAB OLIC PANEL sodium 138 mmol/ L 137-14 5 Not Available [facility] (Lab) [address] [place], [address], 06/18/2022 18:48:06 06/19/1906/18/2022 COMPR EHENS AIDA METAB OLIC PANEL potassium 3.8 mmol/ L 3.5-5. 1 Not Available [facility] (Lab) [address] [place], [address], 06/18/2022 18:48:06 06/19/19 23 06/18/2022 COMPR EHENS AIDA METAB OLIC PANEL chloride 103 mmol/ L 98-107 Not Available [facility] (Lab) [address] [place], [address], 06/18/2022 18:48:06 06/19/19 23 06/18/2022 COMPR EHENS AIDA METAB OLIC PANEL carbon dioxide 25 mmol/ L 22-30 Not Available [facility] (Lab) [address] [place], [address], 06/18/2022 18:48:06 06/19/19 23 06/18/2022 COMPR EHENS AIDA METAB OLIC PANEL anion gap 13.8 mmol/ L 14-22 low Not Available [facility] (Lab) [address] [place], [address], 06/18/2022 18:48:06 06/19/19 23 06/18/2022 COMPR EHENS AIDA METAB OLIC PANEL glucose 115 mg/dL 70-99 high Not Available [facility] (Lab) [address] [place], [address], 06/18/2022 18:48:06 06/19/19 23 06/18/2022 COMPR EHENS AIDA METAB OLIC PANEL BUN 12 mg/dL 8-19 Not Available [facility] (Lab) [address] [place], [address], 06/18/2022 18:48:06 06/19/19 23 06/18/2022 COMPR EHENS AIDA METAB OLIC PANEL creatinine 0.76 mg/dL 0.66-1 .25 Not Available [facility] (Lab) [address] [place], [address], 06/18/2022 18:48:06 06/19/19 23 06/18/2022 COMPR EHENS AIDA METAB OLIC PANEL GFR >60 Refer ence Range : [place] ge GFR Healt hy Adult : >60 mL/mi n/1.7 3 m2 Chron ic Kidne y Disea se: 15-60 mL/mi n/1.7 3 m2 Kidne y Failu re: <15/m L/min /1.73 m2 www.n iddk. nih.g ov The MDRD study equat ion has not been valid ated in child kym <18 years of age; pregn ant women ; the elder ly >85 years of age; or in some racia l or ethni c subgr oups, such as [employer] nics. Outsi de the valid ated tani eters , estim ated GFR is less accur ate, requi ring clini chiara judgm ent on a case- by-ca se basis . Clini chiara inter preta tion for other races and ages must be made by the clini cheryle. The MDRD study equat ion has not been valid ated for the evalu ation of serum creat inine relat ed to nutri galilea l statu s or medic ation usage . For perso ns <18 years of age, a pedia tric GFR calcu lator is avail able on the [facility] websi te: https ://rolanda saunders.keiko loco.o rg/pr ofess ional s/kdo qi/gf r_cal culat or Not Available [facility] (Lab) [address] [place], [address], 06/18/2022 18:48:06 06/19/19 23 06/18/2022 COMPR EHENS AIDA METAB OLIC PANEL alkaline phosphatase 71 U/L 38-126 Not Available [facility] (Lab) [address] [place], [address], 06/18/2022 18:48:06 06/19/1906/18/2022 COMPR EHENS AIDA METAB OLIC PANEL alanine aminotransfe rase 36 U/L 0-50 Not Available [facility] (Lab) [address] [place], [address], 06/18/2022 18:48:06 06/19/1906/18/2022 COMPR EHENS AIDA METAB OLIC PANEL aspartate aminotransfe rase 30 U/L 15-46 Not Available [facility] (Lab) [address] [place], [address], 06/18/2022 18:48:06 05/02/20 23 06/18/2022 COMPR EHENS AIDA METAB OLIC PANEL bilirubin, total 0.80 mg/dL 0.20-1 .30 Not Available [facility] (Lab) [address] [place], [address], 06/18/2022 18:48:06 06/19/19 23 06/18/2022 COMPR EHENS AIDA METAB OLIC PANEL calcium 9.7 mg/dL 8.4-10 .2 Not Available [facility] (Lab) [address] [place], [address], 06/18/2022 18:48:06 06/19/1906/18/2022 COMPR EHENS AIDA METAB OLIC PANEL total protein 8.1 g/dL 6.3-8. 2 Not Available [facility] (Lab) [address] [place], [address], 06/18/2022 18:48:06 06/19/19 23 06/18/2022 COMPR EHENS AIDA METAB OLIC PANEL albumin 4.7 g/dL 3.4-5. 0 Not Available [facility] (Lab) [address] [place], [address], 06/18/2022 18:48:06 06/19/19 23 06/18/2022 COMPR EHENS AIDA METAB OLIC PANEL globulin 3.4 g/dL 2.6-4. 2 Not Available [facility] (Lab) [address] [place], [address], 06/18/2022 18:48:06 06/19/1906/18/2022 COMPR EHENS AIDA METAB OLIC PANEL A/G ratio 1.4 ratio 1.0-2. 0 Not Available [facility] (Lab) [address] [place], [address], 06/18/2022 18:48:06 06/19/19 23 06/18/2022 T3 FREE free T3 3.0 pg/mL 2.77-5 .27 Not Available [facility] (Lab) [address] [place], [address], 06/18/2022 19:26:38 06/19/19 23 06/18/2022 T4 FREE free T4 0.75 NG/dL 0.78-2 .19 low Not Available [facility] (Lab) [address] [place], [address], 06/18/2022 19:22:55 06/19/19 23 06/18/2022 TSH thyroid-stim ulating hormone 7.430 uIU/m L 0.465- 4.680 high Not Available [facility] (Lab) [address] [place], [address], 06/18/2022 19:28:55 06/19/19 23 06/18/2022 PSA SCREE N PSA medicare screen 0.39 NG/mL 0.00-4 .00 Not Available [facility] (Lab) [address] [place], [address], 06/18/2022 19:29:00 06/19/19 23 06/18/2022 MICRO ALBUM N RNDM W/CRE AT RATIO ur creat 131.45 mg/dL REFER ENCE RANGE NOT ESTAB LISHE D FOR RANDO M URINE CREAT ININE Not Available [facility] (Lab) [address] [place], [address], 06/18/2022 20:12:01 06/19/19 23 06/18/2022 MICRO ALBUM N RNDM W/CRE AT RATIO microalbumin , urine 100.0 mg/L 0.0-16 .6 high Not Available [facility] (Lab) [address] [place], [address], 06/18/2022 20:12:01 06/19/19 23 06/18/2022 MICRO ALBUM N RNDM W/CRE AT RATIO microalbumin /creatinine ratio 76 mcg/m g 0-29 high THE AMERI CAN DIABE UGO ASSOC IATIO N DEFIN ES ABNOR MALIT IES IN ALBUM IN EXCRE TION FOLLO WS: CATEG ORY RESUL T (MCG/ MG CREAT ININE ) KIRILL L <30 MICRO ALBUM INURI A 30-29 9 CLINI CHIARA ALBUM INURI A > OR = 300 THE ADA RECOM MENDS THAT 2 OF 2 SPECI MENS COLLE CTED WITHI N A 3- TO 6-MON TH PERIO D BE ABNOR MAL BEFOR E CONSI [place] G A PATIE NT TO HAVE CROSS ED ONE OF THESE DIAGN OSTIC THRES HOLDS . REFER ENCE: DIABE UGO CARE, VOL. 26: S94-S , 2002 Not Available [facility] (Lab) [address] [place], [address], 06/18/2022 20:12:01 06/19/19 23 06/18/2022 HEMOG LOBIN A1C HA1C 7.9 % 4.0-6. 0 high Diabe ugo Scree addy Crite kal: <5.7% Consi stent with absen ce of diabe ugo 5.7-6 .4% Consi stent with incre ased risk for diabe ugo (pred iabet es) >OR=6 .5% Consi stent with diabe ugo REFER ENCE: Diabe ugo Care 2016, 39(Hester ppl.1 ):s13 -s22 Not Available [facility] (Lab) [address] [place], [address], 06/18/2022 20:36:09 Result Notes None recorded. Problems Name Problem SNOMED Code Status Onset Date Resolution Date Notes Provider Name and Address Organization Details Recorded Time Benign essential hypertension 6659913 Active Not Available [facility] 3 21:25:12 Aneurysm of cerebral artery 030180307 Active Not Available [facility] 3 21:25:12 Blood glucose outside reference range 978051470 Active 2016 Not Available [facility] 3 21:25:12 Peripheral venous insufficiency 97821194 Active Not Available [facility] 3 21:25:12 Foot callus 427516606 Active 2021 Not Available [facility] 3 21:25:12 Pure hypercholeste rolemia 233045697 Active Not Available [facility] 3 21:25:12 Skin problem 685509148 Active 2021 Not Available [facility] 3 21:25:12 Type 2 diabetes mellitus without complication 355890904 Active 2021 Not Available [facility] 3 21:25:12 Disorder of eye 287425170 Active 2021 Not Available [facility] 3 21:25:12 Diverticular disease of colon 470275289 Active Not Available [facility] 3 21:25:12 Onychomycosis of toenails 949347085 Active 2021 Not Available [facility] 3 21:25:12 Hypothyroidis m 44995142 Active 2021 Not Available [facility] 3 21:25:12 Diabetic peripheral neuropathy 235716914 Active 2021 Not Available [facility] 3 21:25:12 Aneurysm 432511412 Active Not Available [facility] 3 21:25:12 Tinea pedis 5451791 Active 2021 Not Available [facility] 3 21:25:12 Diabetes mellitus 04623497 Active Not Available [facility] 3 21:25:12 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 Procedures Surgical History Date Name Laterality Status Provider Name and Address Organization Details Recorded Time 01/01/20 23 Nail Debridement completed Ceasar Carvajal DPM [address], [place], [address], [facility] [employer] [facility] [employer] [facility] 01/01/2023 09:44:19 11/27/19 23 Nail Debridement completed Ceasar Carvajal DPM [address], [place], [address], [facility] [employer] [facility] [employer] [facility] 12/11/2022 13:23:35 08/28/19 23 Nail Debridement completed Ceasar Carvajal DPM [address], [place], [address], [facility] [employer] [facility] [employer] [facility] 08/27/2022 15:08:40 05/24/19 23 Nail Debridement completed Ceasar Carvajal DPM [address], [place], [address], [facility] [employer] [facility] 06/14/2022 15:20:37 reconstruction procedure completed Not Available [facility] 04/17/2022 14:46:38 Orthopedic Surgery completed Not Available [facility] 04/17/2022 14:46:38 Hernia Repair completed Not Available [facility] 04/17/2022 14:46:38 Tonsillectomy completed Not Available [facility] 04/17/2022 14:46:38 Imaging Results None recorded. Procedure Notes None recorded. Medical Equipment None Reported. Allergies No known drug allergies Medications Name Sig Start Date Stop Date Status Note LastModified by Organization Details LastModified Time metformin 500 mg tablet TAKE 1 TABLET BY MOUTH EVERY DAY WITH BREAKFAS T 08/06 completed Not Available Not Available Not Available neomycin- polymyxin -hydrocor t 3.5 mg/mL-10, 000 unit/mL-1 % ear solution 09/07 completed Not Available Not Available Not Available atorvasta tin 80 mg tablet TAKE 1 TABLET BY MOUTH EVERY DAY active Not Available Not Available No t Available clindamyc in HCl 300 mg capsule Take 1 capsule every 6 hours by oral route. active Not Available Not Available No t Available lisinopri l 20 mg tablet TAKE 1 TABLET BY MOUTH EVERY DAY active Not Available Not Available No t Available clindamyc in HCl 150 mg capsule take 3 tab TID 09/07 completed Not Available Not Available Not Available Accu-Chek Softclix Lancets USE TWICE DAILY AND NEEDED active Not Available Not Available No t Available clopidogr el 75 mg tablet TAKE 1 TABLET BY MOUTH EVERY DAY active Not Available Not Available No t Available aspirin 81 mg tablet,de layed release TAKE 1 TABLET BY MOUTH EVERY DAY active Not Available Not Available No t Available amoxicill in 500 mg tablet Take 1 tablet 3 times a day by oral route for 7 days. active Not Available Not Available No t Available glimepiri de 2 mg tablet TAKE 1 TABLET BY MOUTH EVERY DAY 12/10 completed changed to 4mg Not Available Not Available Not Available levothyro xine 75 mcg tablet TAKE 1 TABLET BY MOUTH EVERY DAY 01/21 completed changed to 100mcg by Dr Allen Not Available Not Available Not Available levothyro xine 100 mcg tablet TAKE 1 TABLET BY MOUTH EVERY DAY 07/29 completed dose change to 125mcg daily Not Available Not Available Not Available terbinafi ne HCl 250 mg tablet TAKE 1 TABLET BY MOUTH EVERY DAY DIRECTED FOR 14 DAYS 10/09 completed Not Available Not Available Not Available amlodipin e 10 mg tablet TAKE 1 TABLET BY MOUTH EVERY DAY active Not Available Not Available No t Available levothyro xine 50 mcg tablet Take 1 tablet every day by oral route. 07/21 completed Not Available Not Available Not Available metformin 1,000 mg tablet Take 1 tablet twice a day by oral route. 05/13 completed Not Available Not Available Not Available levothyro xine 125 mcg tablet TAKE 1 TABLET BY MOUTH EVERY DAY active Not Available Not Available No t Available pyridosti gmine bromide 60 mg tablet TAKE 1 TABLET BY MOUTH DAILY X3 DAYS, THEN 1 TABLET TWICE DAILY X3 DAYS, THEN 1 TABLET 3 TIMES DAILY 08/06 completed Not Available Not Available Not Available lisinopri l 10 mg tablet TAKE 1 TABLET BY MOUTH EVERY DAY 08/14 completed Dose change to 20 mg Not Available Not Available Not Available glimepiri de 4 mg tablet TAKE 1 TABLET BY MOUTH EVERY DAY active Not Available Not Available No t Available Tylenol 325 mg tablet Take 2 tablets every 6 hours by oral route. 01/21 completed Not Available Not Available Not Available ammonium lactate 12 % topical cream APPLY 2 APPLICAT IONS ONTO THE AFFECTED AREA EVERY DAY NEEDED. active Not Available Not Available No t Available lisinopri l 5 mg tablet TAKE 1 TABLET BY MOUTH EVERY DAY active Not Available Not Available No t Available ergocalci ferol (vitamin D2) 1,250 mcg (50,000 unit) capsule TAKE 1 CAPSULE EVERY WEEK BY ORAL ROUTE. active Not Available Not Available No t Available Viagra 100 mg tablet Take 1 tablet every day by oral route as needed. 2021 active Not Available Not Available Not Avai lable ketoconaz ole 2 % topical cream APPLY TO AFFECTED AREA(S) ON TOENAILS ONCE DAILY active Not Available Not Available No t Available lisinopri l 40 mg tablet TAKE 1/2 TABLET BY MOUTH TWICE A DAY active Not Available Not Available No t Available clotrimaz ole 1 % topical cream APPLY TO AFFECTED AREA TWICE A DAY IN THE MORNING AND IN THE EVENING active Not Available Not Available No t Available Antifunga l (miconazo le) 2 % topical cream APPLY TO THE AFFECTED AREA(S) BY TOPICAL ROUTE 2 TIMES PER DAY IN THE MORNING AND EVENING 01/21 completed Not Available Not Available Not Available insulin lispro (U-100) 100 unit/mL subcutane ous pen INJECT 15 UNITS UNDER THE SKIN 3 TIMES DAILY BEFORE MEALS active Not Available Not Available No t Available ezetimibe 10 mg tablet TAKE 1 TABLET BY MOUTH EVERY DAY active Not Available Not Available No t Available rosuvasta tin 20 mg tablet TK 1 T PO D 12/15 completed Not Available Not Available Not Available rosuvasta tin 40 mg tablet TAKE 1 TABLET BY MOUTH EVERY DAY active Not Available Not Available No t Available Alcohol Prep Pads USE TO TEST BLOOD SUGAR 3 TIMES DAILY WITH MEALS active Not Available Not Available No t Available BD Ultra-Fin e Mini Pen Needle 31 gauge x 3/16 USE TO INJECT 3 TIMES DAILY active Not Available Not Available No t Available Tricor 145 mg tablet 1 daily 07/21 completed Not Available Not Available Not Available Lantus Solostar U-100 Insulin 100 unit/mL (3 mL) subcutane ous pen INJECT 48 UNIT ONCE DAILY active Not Available Not Available No t Available Bystolic 10 mg tablet TAKE 1 TABLET BY MOUTH EVERY DAY active Not Available Not Available No t Available ticagrelo r 90 mg tablet Take 1 tablet twice a day by oral route. 01/21 completed Not Available Not Available Not Available OneTouch Verio test strips USE TO TEST 3 TIMES DAILY WITH MEALS 2022 active Not Available Not Available Not Avai lable Vascepa 1 gram capsule TAKE 1 CAPSULE BY MOUTH TWICE A DAY 05/01 completed Not Available Not Available Not Available Naftin 2 % topical gel 12/24 completed Not Available Not Available Not Available aspirin 80 mg tablet Take tablet(s ) by oral route. 08/06 completed Not Available Not Available Not Available Praluent Pen 150 mg/mL subcutane ous pen injector Inject 1 mL every 2 weeks by subcutan eous route. active Not Available Not Available No t Available Repatha SureClick 140 mg/mL subcutane ous pen injector Inject 1 mL every 2 weeks by subcutan eous route. 05/01 completed Not Available Not Available Not Available OneTouch Verio Flex Meter USE TO TEST BLOOD GLUCOSE DIAGNOSI S ICD10: E13 active Not Available Not Available No t Available Fluvirin 45 mcg (15 mcg x 3)/0.5 mL intramusc ular suspensio n active Not Available Not Available Not Available Fish Oil 1,000 mg (120 mg-180 mg) capsule Take 3 capsules every day by oral route. 2016 active Not Available Not Available Not Avai lable TRUEplus Pen Needle 31 gauge x 1/4 USE DIRECTED WITH INSULIN INJECTIO NS 4 TIMES DAILY active Not Available Not Available No t Available Fluvirin 6640-3460 45 mcg (15 mcg x 3)/0.5 mL intramusc ular suspensio n 01/27 completed Not Available Not Available Not Available OneTouch Delica Plus Lancet 33 gauge USE TO TEST BLOOD SUGAR 3 TIMES DAILY WITH MEALS active Not Available Not Available No t Available OneTouch Delica Plus Lancet 30 gauge USE TO TEST 3 TIMES DAILY active Not Available Not Available No t Available Vitals Date Recorded Body height Body mass index (BMI) Body weight Body temperature Heart rate Systolic blood pressure Diastolic blood pressure Provider Name and Address Organization Details Last Updated DateTime 3 198.12 cm 30.7 kg/m2 955732. 57 g 97.7 [degF] 63 /min 140 mm[Hg] 92 mm[Hg] QUINCY Saeed [place] - S [place] [employer] [facility] 3 15:46:48 Date Recorded Body height Body mass index (BMI) Body weight Heart rate Respiratory rate Oxygen saturation Oxygen saturation in Arterial blood by Pulse oximetry Systolic blood pressure Diastolic blood pressure Provider Name and Address Organization Details Last Updated DateTime 3 198.12 cm 30.7 kg/m2 930641. 57 g 103 /min 14 /min 97 % 97 % 155 mm[Hg] 103 mm[Hg] Carrie So [facility] [employer] [facility] 3 14:58:17 Date Recorded Body height Body mass index (BMI) Body weight Body temperature Heart rate Oxygen saturation Oxygen saturation in Arterial blood by Pulse oximetry Systolic blood pressure Diastolic blood pressure Provider Name and Address Organization Details Last Updated DateTime 3 198.12 cm 30.7 kg/m2 039881. 57 g 97.8 [degF] 96 /min 94 % 94 % 130 mm[Hg] 80 mm[Hg] Humaira Arguello MA [facility] [employer] [facility] 3 15:34:25 Date Recorded Body height Body mass index (BMI) Body weight Heart rate Respiratory rate Oxygen saturation Oxygen saturation in Arterial blood by Pulse oximetry Provider Name and Address Organization Details Last Updated DateTime 3 198.12 cm 30.7 kg/m2 867917. 57 g 89 /min 14 /min 97 % 97 % Carrie So [facility] [employer] [facility] 3 16:35:27 Date Recorded Body height Body mass index (BMI) Body weight Heart rate Respiratory rate Oxygen saturation Oxygen saturation in Arterial blood by Pulse oximetry Provider Name and Address Organization Details Last Updated DateTime 3 198.12 cm 30.7 kg/m2 628168. 57 g 87 /min 14 /min 97 % 97 % Carrie So [facility] [employer] [facility] 3 17:55:01 Social History Question Answer Notes LastModified by Organizat ion Details LastModified Time Tobacco Smoking Status Never Smoker Not Available [facility] 04/17/2022 14:46:06 Do You Have An Advance Directive? No [id number] [id number] Information not available 04/17/2022 What Is Your Level Of Alcohol Consumption? Occasional MIGRATION.50304 [id number] Information not available 04/17/2022 What Is Your Level Of Caffeine Consumption? Occasional MIGRATION.15965 07595 Information not available 04/17/2022 How Much Tobacco Do You Chew? None MIGRATION.13846 51321 Information not available 04/17/2022 In The 14 Days Before Symptom Onset, Have You Had Close Contact With A Laboratory-confi rmed COVID-19 While That Case Was Ill? No MIGRATION.59844 84120 Information not available 04/17/2022 In The 14 Days Before Symptom Onset, Have You Had Close Contact With A Person Who Is Under Investigation For COVID-19 While That Person Was Ill? No MIGRATION.68822 85190 Information not available 04/17/2022 What Type Of Diet Are You Following? REGULAR MIGRATION.66016 07944 Information not available 04/17/2022 Which Illicit Or Recreational Drugs Have You Used? None MIGRATION.14682 99328 Information not available 04/17/2022 Do You Or Have You Ever Used E-cigarettes Or Vape? Never Used Electronic Cigarettes MIGRATION.26742 39913 Information not available 04/17/2022 What Is Your Occupation? Retired MIGRATION.92096 51957 Information not available 04/17/2022 Have There Been Any Changes To Your Family Or Social Situation? No MIGRATION.96869 10609 Information not available 04/17/2022 Do You Use Insect Repellent Routinely? No MIGRATION.87123 90204 Information not available 04/17/2022 Where Do You Live? [facility] MIGRATION.64074 17945 Information not available 04/17/2022 What Was The Date Of Your Most Recent Tobacco Screening? 06/18/2022 [email or web address] Information not available 06/18/2022 Do You Have Any Pets? Yes MIGRATION.75846 92849 Information not available 04/17/2022 What Is Your Relationship Status? MIGRATION.79565 10679 Information not available 04/17/2022 Do You Have Smoke And Carbon Monoxide Detectors In Your Home? Yes MIGRATION.71006 76251 Information not available 04/17/2022 Are You Passively Exposed To Smoke? No MIGRATION.48336 58936 Information not available 04/17/2022 Do You Or Have You Ever Used Smokeless Tobacco? Never Used Smokeless Tobacco MIGRATION.56372 75927 Information not available 04/17/2022 Are There Any Smokers In Your House? No MIGRATION.43762 76688 Information not available 04/17/2022 How Much Tobacco Do You Smoke? No MIGRATION.31950 81551 Information not available 04/17/2022 Do You Feel Stressed (tense, Restless, Nervous, Or Anxious, Or Unable To Sleep At Night)? [id number] MIGRATION.16018 09134 Information not available 04/17/2022 Do You Use Any Illicit Or Recreational Drugs? No MIGRATION.73215 73412 Information not available 04/17/2022 Do You Use Sunscreen Routinely? Yes MIGRATION.43766 58504 Information not available 04/17/2022 How Many Years Have You Smoked Tobacco? 0 MIGRATION.56027 30961 Information not available 04/17/2022 Do You Have Any Dietary Restrictions? No MIGRATION.32006 16291 Information not available 04/17/2022 Sex: Unknown Functional Status Question Answer Note LastModified by Organizat ion Details LastModified Time What is your exercise level? Moderate [id number] Information not available 04/17/2022 Mental Status None recorded. Family History Relationship Description Onset Age of this Age Resolved Age Notes LastModified by Organization Details LastModified Time Mother Hypercholest erolemia [id number] Not available 04/17/2022 14:46:40 Father Hypertensive disorder MIGRATION.[id number] Not available 04/17/2022 14:46:40 Father Heart disease [employer] MIGRATION.199 [id number] Not available 04/17/2022 14:46:40 Medical History Condition Response NERVE DISEASE N BLINDNESS N RHEUMATIC FEVER N KIDNEY STONES N BLADDER PROBLEMS N OTHER # 1 N POLIO N LUNG DISEASE/DISORDER N RADIATION / CHEMOTHERAPY N COPD N Other # 2 N BLOOD DISEASES N SURGERY N EAR OR HEARING PROBLEMS N MUMPS N BOWEL PROBLEMS Y DEPRESSION (INCLUDING POST ) N STROKE/TIA Y ULCERS N BENIGN PROSTATIC HYPERPLASIA N MEASLES N MYOCARDIAL INFARCTION N OBESITY N GERD/NAUSEA N ANEURYSM Y URINARY/BLADDER/KIDNEY PROBLEMS N INPATIENT PSYCH CARE N CORONARY ARTERY DISEASE (CAD) N ADDICTION CONCERNS N Impotence N ENDOMETRIOSIS N USE OF BLOOD THINNERS Y SKIN PROBLEMS Y GASTROINTESTINAL DISORDER N PERIPHERAL VASCULAR DISEASE Y MUSCLE,JOINT OR BONE PROBLEMS N GASTROINTESTINAL BLEEDING N BLOOD CLOTS N ASTHMA N CATARACTS N ERECTILE DYSFUNCTION N VARICOSITIES N GI PROBLEMS N Low Testosterone N INFERTILITY N AIDS/HIV N LIVER DISEASE N MALE HYPOGONADISM N HYPERTENSION Y Deficiency N ANXIETY DISORDER N BLOOD TRANSFUSION N ANEMIA/BLOOD DISORDER N CHRONIC EAR INFECTIONS N BRONCHITIS N TUBERCULOSIS N GLAUCOMA N FOOT PROBLEM N DIVERTICULITIS N SLEEP APNEA N CHICKENPOX N INFECTIOUS DISEASE N PROSTATE N HEART ARRHYTHMIA N INSOMNIA N HIGH CHOLESTEROL / HYPERLIPIDEMIA Y EYE PROBLEMS Y HYPERTHYROIDISM N NEUROLOGICAL PROBLEMS N EDEMA N CHRONIC PAIN SYNDROME N HYPOTHYROIDISM N CONSTIPATION N CAROTID BLOCKAGE N BACK / NECK PROBLEMS N HAVE YOU BEEN HOSPITALIZED OR SEEN IN [facility] ER IN THE PAST YEAR ? N ATHEROSCLEROSIS N BREAST PROBLEMS N DIALYSIS N ECZEMA N OSTEOPOROSIS N ARTHRITIS N APPENDICITIS N DIABETES, TYPE Y BAD TEETH N ENT N HEARTBURN / REFLUX N AUTISM SPECTRUM DISORDER (ASD) N HEPATITIS / LIVER DISEASE N PULMONARY DISEASE N GOUT N SLEEP DISORDER Y ALZHEIMER'S DISEASE N Brain Problems N DEMENTIA N HERPES N SEIZURES/EPILEPSY N HEADACHES/MIGRAINES N VASCULAR DISEASE N PACEMAKER N Blood Disorder N DIZZINESS N HEART DISEASE/HEART PROBLEMS N KIDNEY DISEASE N MULTIPLE SCLEROSIS N CANCER: SPECIFY N CARDIAC ARRHYTHMIA N ANESTHESIA COMPLICATIONS N ATRIAL FIBRILLATION N Gall Stones N PULMONARY EMBOLISM N AUTOIMMUNE DISEASE N Immunizations Vaccine Type Date Status Note Provider Nam e and Address Organization Details Recorded Time COVID-19, mRNA, LNP-S, PF, 30 mcg/0.3 mL dose 1 completed Not Available [facility] 07/06/2022 21:25:12 influenza, unspecified formulation 8 completed Not Available [facility] 07/06/2022 21:25:12 Influenza, split virus, trivalent, preservative 7 completed Not Available [facility] 07/06/2022 21:25:12 influenza, unspecified formulation 2 completed Not Available [facility] 07/06/2022 21:25:12 COVID-19, mRNA, LNP-S, PF, 30 mcg/0.3 mL dose 1 completed Not Available [facility] 07/06/2022 21:25:12 Influenza, split virus, quadrivalent, preservative 0 completed Not Available [facility] 07/06/2022 21:25:12 influenza, unspecified formulation 5 completed Not Available [facility] 07/06/2022 21:25:12 Influenza, split virus, quadrivalent, PF 9 completed Not Available [facility] 07/06/2022 21:25:12 Influenza, split virus, trivalent, preservative 4 completed Not Available [facility] 07/06/2022 21:25:12 Past Encounters Encounter ID Performer Location Encounter Start Date Encounter Closed Date Diagnosis/Indication Diagnosis SNOMED-CT Code Diagnosis ICD10 Code Diagnosis Note [id number] [facility] Internal Med [facility] 15 Lynette Yesi [place] [address] 05/01/2020 00:00:00 05/20/2020 15:50:49 [id number] [facility] Internal Med [facility] [address] [place] [address] [address] [address] 05/29/2020 00:00:00 05/29/2020 11:19:06 [id number] [facility] Internal Med [facility] [address] [place] [address] [place] [address] 08/07/2020 00:00:00 08/07/2020 22:11:34 [id number] [facility] Internal Med [facility] [address] [place] [address] [place] [address] 08/06/2021 00:00:00 08/13/2021 09:34:19 [id number] [facility] [place] [address], [facility] 4 [place] [address] 09/20/2021 00:00:00 09/20/2021 15:37:36 [id number] [facility] Internal Med [facility] [address] [place] [address] [place] [address] 09/24/2021 00:00:00 09/25/2021 08:37:18 [id number] [facility] Internal Med [facility] [address] [place] [address] [place] [address] 10/29/2021 00:00:00 10/30/2021 09:00:13 [id number] [facility] [place] [address], [facility] 4 [place] [address] 12/24/2021 00:00:00 01/02/2022 11:16:09 [id number] [facility] Internal Med [facility] [address] [place] [address] [place] [address] 01/21/2022 00:00:00 01/21/2022 19:34:53 [id number] Ceasar Carvajal DPM [facility] Podiatry [address], [facility] 4 [place] [address] 05/23/2022 14:59:00 06/14/2022 15:51:36 Diabetic peripheral neuropathy 343534698 E11.40 Patient educated on neuropathy , diabetes, diabetic diet, and daily foot exams. Patient is to check feet daily for new wounds, blisters, redness to prevent infection and ulceration s to the feet. Patient will return to clinic in 3 months for diabetic foot workup. Onychomyco sis of toenails 905300435 B35.1 Nails 1 through 10 were debrided with sharp mechanical debridemen t without incident. Nails were debrided and greater than 50% length and thickness where needed. 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 Pure hypercholesterolemia 056119745 E78.00 Late effec ts of cerebrovascular disease 315489087 I69.90 Hypothyroidism 79115483 E03.9 Benign ess ential hypertension 9491458 I10 Diabetes mellitus 515071 09 E11.9 Screening for malignant neoplasm of prostate 290501847 Z12.5 [id number] Ceasar Carvajal DPM [facility] Podiatry [address], [facility] 4 [place] [address] 08/27/2022 14:53:28 08/27/2022 16:05:28 Tinea pedis 6067737 B35.3 bilateral feetEducat ed on daily foot hygieneEdu cated on shoe hygieneFol low-up in 2 weeks if not resolved Onychomyco sis of toenails 117714144 B35.1 Nails 1 through 10 were debrided with sharp mechanical debridemen t without incident. Nails were debrided and greater than 50% length and thickness where needed. Diabetic p eripheral neuropathy 213062770 E11.40 Patient educated on neuropathy , diabetes, diabetic diet, and daily foot exams. Patient is to check feet daily for new wounds, blisters, redness to prevent infection and ulceration s to the feet. Patient will return to clinic in 3 months for diabetic foot workup. [id number] Toan Allen MD [facility] Internal Med [facility] [address]43 [facility], [facility] 15 [place] [address] 10/09/2022 15:18:24 10/09/2022 16:06:27 Hypothyroidism 72615829 E03.9 Benign ess ential hypertension 6836607 I10 Diabetes mellitus 186476 09 E11.9 Pure hypercholesterolemia 860265755 E78.00 [id number] Ceasar Carvajal DPM [facility] Podiatry [address], [facility] 4 [place] [address] 11/26/2022 16:29:13 12/11/2022 13:39:15 Tinea pedis 4208540 B35.3 bilateral feetEducat ed on daily foot hygieneEdu cated on shoe hygieneFol low-up in 2 weeks if not resolved Onychomyco sis of toenails 189056683 B35.1 Nails 1 through 10 were debrided with sharp mechanical debridemen t without incident. Nails were debrided and greater than 50% length and thickness where needed. Diabetic p eripheral neuropathy 639820445 E11.40 Patient educated on neuropathy , diabetes, diabetic diet, and daily foot exams. Patient is to check feet daily for new wounds, blisters, redness to prevent infection and ulceration s to the feet. Patient will return to clinic in 3 months for diabetic foot workup. [id number] Ceasar Carvajal DPM [facility] Podiatry [address], [facility] 4 [place] [address] 12/31/2022 17:49:32 01/01/2023 12:55:22 Tinea pedis 5105200 B35.3 bilateral feet- Resolvedco ntinue daily foot hygiene and shoe hygiene to prevent reinfectio n Onychomyco sis of toenails 431863989 B35.1 Nails 1 through 10 were debrided with sharp mechanical debridemen t without incident. Nails were debrided and greater than 50% length and thickness where needed. Diabetic p eripheral neuropathy 003357280 E11.40 Patient educated on neuropathy , diabetes, diabetic diet, and daily foot exams. Patient is to check feet daily for new wounds, blisters, redness to prevent infection and ulceration s to the feet. Patient will return to clinic in 3 months for diabetic foot workup.Rx diabetic shoes and inserts Health Concerns Section Related Observation LastModified by Organization Detai ls LastModified Time None Recorded Concern Status LastModified by Organization Details LastModified Time None Recorded Advance Directives Directive N: Payers Encounter Date Sequence Insurance Name Policy Number Policy Armas Covered Member ID Armas Member ID Guarantor Name 06/18/2022 1 [facility] (MEDICAID HMO) [id number] Nolan Coleman McIlvoy [id number] Nolan Coleman McIlvoy 08/27/2022 1 [facility] (MEDICAID HMO) [id number] Nolan Coleman McIlvoy [id number] Nolan Coleman McIlvoy 10/09/2022 1 [facility] (MEDICAID HMO) [id number] Nolan Coleman McIlvoy [id number] Nolan Coleman McIlvoy 11/26/2022 2 [place] [employer] Nolan Coleman McIlvoy [id number] Nolan Coleman McIlvoy 12/31/2022 2 [place] [employer] Nolan Coleman McIlvoy [id number] Nolan M McIlvoy 12/31/2022 1 [employer] (MEDICARE) Nolan Coleman McIlvoy [id number] Nolan Coleman McIlvoy Notes Date Note Type Note Provider Name and Address Organization Details Recorded Time 3 text/html hypothyroid no heat or cold intolerancediabetes no polyphagia no polydipsiahypertension no headache or dizzinesshistory of stroke stable still has used ambulatory assist deviceDyslipidemia does try to watch his intake of Toan Allen MD [address] [place] [address], [place] [address], [place], [address], [facility] 07/28/2022 10:36:43 3 text/html . Patient is 62-year-old male diabetic who returns the office for diabetic foot evaluation. Patient states he is noticing is low dry skin and rash. Patient states that he has topical antifungal cream at home but is unable to effectively use it does he cannot bend over at times. Patient states that he also needs his nails cut as he cannot perform this. Patient denies any other complaints. Ceasar Carvajal DPM [address], [place], [address], [employer] 08/27/2022 15:43:46 3 text/html Hypothyroid no heat or cold intolerance diabetes no polyphagia no polydipsia history of stroke and aneurysm stable still walks with a walker hypertension blood pressure 130/80 doing Toan Allen MD [address], [place], [address], [employer] 10/09/2022 21:03:55 3 text/html . Patient is a 62-year-old male diabetic who returns the office for routine foot care. Patient states overall he is doing well. Patient states he does have some rashes and dry skin of the plantar feet. Patient states he does not have any itching secondary to diabetic neuropathy. Patient denies any treatment for this condition. Patient denies any other complaints. Ceasar Carvajal DPM [address], [place], [address], [employer] 12/11/2022 13:24:14 3 text/html . Patient is a 62-year-old male diabetic who returns the office for diabetic foot care. Patient also has been treated with topical antifungal medication to his toenails. Patient states he has notice some improvement. Patient continues have thickening of the nails. Patient denies any redness or drainage. Patient denies any wounds or infection of the foot. Patient denies any other complaints. Ceasar Carvajal DPM [address], [place], [address], [employer] 01/01/2023 09:45:42
[2024-03-17 05:45] LABS: Free T4 Free Thyroxine Reflex 0.88 ng/dL (0.78-2.19)
[2024-03-17 06:26] LABS: Total Triiodothyronine (T3) 1.34 NG/ML (0.97-1.69)
== END 2024-03-17 05:35 | disposition short-term general hospital (02) ==
LOC: ANHED 03-17 04:01
PROVIDERS: Emergency Provider Student in an Organized Health Care Education/Training Program; PCP Internal Medicine
DX: I77.74 Dissection of vertebral artery (principal); I63.22 Cerebral infarction due to unspecified occlusion or stenosis of basilar artery; I63.533 Cerebral infarction due to unspecified occlusion or stenosis of bilateral posterior cerebral arteries; R29.703 NIHSS score 3; R53.1 Weakness; N20.0 Calculus of kidney; R94.31 Abnormal electrocardiogram [ECG] [EKG]
CPT/HCPCS: 36415; 70450; 70496; 70498; 71045; 71275; 74174; 80053; 82948; 84439; 84443; 84480; 84484; 85025; 85610; 85730; 93005; 96360; 99285; J7120; Q9967